=== PATIENT | female | born 1985 | race Caucasian/White ===

== ENCOUNTER 2017-03-25 17:41 | Emergency (ER) | payer BC, OTHER ==
[~2017-03-25] VITALS: Ht 165.1 cm; Wt 65.5 kg
[~2017-03-25 17:41] MED LIST: BACTDS PO; CEPH-443 PO; CLIN-73 PO; GUAI118L94 PO; IBUP-1542 PO; NAPR220C2 PO; ONDA4TAB35 PO; RTPRO NEB
[2017-03-25 17:55] VITALS: Ht 165.1 cm; Wt 65.5 kg
[2017-03-25] MEDS ORDERED: CEPH-443 PO (18:50)
[2017-03-25] MEDS ORDERED: MUPI22OI2 TOP (18:50)
[2017-03-25] MEDS ORDERED: SULF1TAB31 PO (18:50)
--- NOTE | 2017-03-25 23:12 | ERD ---
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 She states she developed small abscesses to her right axilla and a few on her upper back. She states for the last 2 years she has been on oral antibiotics and antibiotic ointments for treatment. She denies fevers or chills, no chest pain or shortness of breath, no headache or blurry vision. ROS All systems reviewed and are negative except as per history of present illness. Medications Home Meds Active Scripts Mupirocin* (Bactroban*) 2% -22 Gram Oint...g., 1 APPLIC TOP BID for 14 Days, EA Prov:NATALIE AHUMADA MD 03/25/17 Cephalexin* (Keflex*) 500 Mg Capsule, 500 MG PO QID for 10 Days, CAP Prov:NATALIE AHUMADA MD 03/25/17 Sulfamethoxazole/Trimethoprim* (Bactrim Ds* Tablet) 1 Each Tablet, 1 TAB PO BID , #20 TAB Prov:NATALIE AHUMADA MD 03/25/17 Clindamycin Hcl* (Clindamycin Hcl*) 300 Mg Capsule, 450 MG PO TID for 10 Days, CAP Prov:SIMONA DEWEY PA-C 08/29/16 Albuterol Sulfate* (Proventil* Neb) 0.083% Neb, 2.5 MG NEB Q4 Y for SHORTNESS OF BREATH, #30 EA Prov:YASMIN THORPE MD 05/02/16 Ibuprofen* (Motrin*) 600 Mg Tab, 600 MG PO Q6H Y for PAIN AND OR ELEVATED TEMP, #30 Prov:CATERINA ALFRED NP 09/01/15 Guaifenesin-Codeine Phosphate* (Guaifenesin* with Codeine Liq) 120 Ml Liquid, 5 ML PO Q4H Y for COUGH, #60 ML Prov:CATERINA ALFRED NP 08/06/15 Clindamycin Hcl* (Clindamycin Hcl*) 300 Mg Capsule, 300 MG PO Q8 for 10 Days, CAP Prov:CATERINA ALFRED NP 08/06/15 Ondansetron Hcl* (Zofran* ODT) 4 mg -ODT Tab.disper, 4 MG PO Q8 Y for NAUSEA AND /OR VOMITING, #30 TAB Prov:CATERINA ALFRED NP 08/06/15 Cephalexin* (Keflex*) 500 Mg Capsule, 500 MG PO QID for 10 Days, CAP Prov:CATERINA ALFRED NP 07/23/15 Ibuprofen* (Ibuprofen*) 600 Mg Tablet, 600 MG PO Q6H Y for PA, #30 TAB Prov:CATERINA ALFRED NP 07/23/15 Sulfamethoxazole-Trimethoprim* (Bactrim* DS) 800-160 Mg Tab, 1 TAB PO BID for 10 Days, TAB Prov:CATERINA ALFRED NP 07/23/15 Cephalexin* (Keflex*) 500 Mg Capsule, 500 MG PO QID for 7 Days, CAP Prov:JAVIER BACON PA-C 06/04/15 Sulfamethoxazole-Trimethoprim* (Bactrim* DS) 800-160 Mg Tab, 1 TAB PO BID for 7 Days, TAB Prov:JAVIER BACON PA-C 06/04/15 Reported Medications Naproxen* (Aleve*) Unknown Strength Capsule, PO BID, CAP 09/01/15 [None] No Conflict Check 01/27/11 Allergies Allergies: Coded Allergies: meperidine (Verified Allergy, Mild, 03/25/17) vancomycin (Verified Allergy, Mild, 09/01/15) marijuana (Verified Allergy, Unknown, 03/25/17) PMhx/Soc MRSA positive skin infections History of Surgery: Yes (CVP Cath Placement/Removal) Anesthesia Reaction: No Hx Neurological Disorder: No Hx Respiratory Disorders: Yes (Asthma,COPD) Hx Cardiac Disorders: Yes ([facility]I(2007)) Hx Psychiatric Problems: No Hx Miscellaneous Medical Probl: Yes (Leukemia,ChemoTx,Myalgia,R Achilles Tendon Sprain,Chronic Skin Abscesses) Hx Alcohol Use: No Hx Substance Use: No Hx Tobacco Use: Yes Smoking Status: Current every day smoker FmHx Family History: No diabetes Physical Exam Vitals Vital Signs Date Time Temp Pulse Resp B/P Pulse Ox O2 Delivery O2 Flow Rate FiO2 03/25/17 17:55 98.3 127 20 115/69 100 Physical Exam GENERAL: Well-developed, well-nourished, well-hydrated, in no apparent distress , looks nontoxic in appearance HEENT: Moist mucous membranes, pink conjunctiva, no cervical spine tenderness or step-off deformities, no goiter, no jaundice or icterus, extraocular movements intact without pain. No submandibular induration, and no pharyngeal erythema NEURO: Alert and oriented 3, cranial nerves II through XII intact bilaterally, pupils equal round reactive to light, no focal deficits or facial asymmetry, sensation intact distally Strength 5/5 in upper and lower extremities bilaterally CARDIAC: Regular rate and rhythm, no murmurs rubs or gallops LUNGS: Clear bilaterally no wheezing crackles or stridor ABDOMEN: Soft nontender, no guarding, no rigidity, no rebound, no psoas sign no obturator sign. Normoactive bowel sounds SKIN: Multiple 1-2 cm circular superficial abscesses and ulcerations consistent with folliculitis to the right axilla and upper back no active purulent drainage noted from any of these, and no obvious skin induration. No target lesions, no skin desquamation. EXTREMITIES: No clubbing cyanosis or edema, calves are bilaterally symmetrical, no Homans sign, no popliteal cord sign. Distal pulses equal and bilateral PSYCH: Normal affect without agitation or irritability Procedures/MDM Reassurance was provided to the patient and I agreed to treat her with both oral and topical antibiotics for the next 10 days. Patient feels much better at this time, and vital signs are normal, symptoms have improved. I did give strict instructions to return to the ED if symptoms continue or worsen, patient will otherwise follow-up with primary care physician. Patient understood instructions and agreed to plan. Disclaimer: Inadvertent spelling and grammatical errors are likely due to EHR/ dictation software use and do not reflect on the overall quality of patient care. Also, please note that the electronic time recorded on this note does not necessarily reflect the actual time of the patient encounter. Departure Diagnosis: Primary Impression: Soft tissue abscess Additional Impression: Acute folliculitis Condition: Good Patient Instructions: Mrsa Skin Infection, Suspected Or Confirmed NATALIE AHUMADA MD Mar 25, 2017 23:12
== END 2017-03-25 20:00 | disposition home or self-care (01) ==
LOC: FTE 17:41
DX: L02.411 Cutaneous abscess of right axilla (principal); L02.212 Cutaneous abscess of back [any part, except buttock and flank]; L73.9 Follicular disorder, unspecified; J45.909 Unspecified asthma, uncomplicated; J44.9 Chronic obstructive pulmonary disease, unspecified; F17.210 Nicotine dependence, cigarettes, uncomplicated
CPT/HCPCS: 99284

== ENCOUNTER 2017-03-29 19:21 | Emergency (ER) | END 2017-03-29 23:10 | disposition left against medical advice (07) | DX: R22.0 Localized swelling, mass and lump, head (principal); J45.909 Unspecified asthma, uncomplicated; F17.210 Nicotine dependence, cigarettes, uncomplicated; J44.9 Chronic obstructive pulmonary disease, unspecified; Z85.6 Personal history of leukemia | CPT/HCPCS: J2930; Z7502; Z7610 ==

== ENCOUNTER 2017-05-30 20:54 | Emergency (ER) | payer OTHER ==
[~2017-05-30] VITALS: Ht 157.5 cm; Wt 75.0 kg
[~2017-05-30 20:54] MED LIST changes: +MUPI22OI2 TOP; +SULF1TAB31 PO
[2017-05-30 22:15] VITALS: Ht 157.5 cm; Wt 75.0 kg
[2017-05-30] MEDS ORDERED: CARB200T43 PO (23:13)
--- NOTE | 2017-05-30 23:23 | ERD ---
ER Documentation Chief Complaint Date/Time DATE: 05/30/17 TIME: 23:16 Chief Complaint NERVE PAIN LEFT SIDE 3-4 DAYS, BLURRY VISION AND HEARING PROB HPI 32-year-old female presents here in emergency department for complaints of minor pain on the left facial area started 4 days ago, patient states that it starts in the left ear area, radiates to the upper and lower part of the facial area, only on the left side. Patient is complaining of numbness and tingling at times but denies any deformity or slurred speech, or weakness or paralysis. Patient feels like the facial area is on fire, but only on the left side.Patient did not take any medication help with symptoms. ROS All systems reviewed and are negative except as per history of present illness. Medications Home Meds Active Scripts Carbamazepine* (Carbamazepine* XR) 200 Mg Tab.er.12h, 200 MG PO Q12, #20 TAB.SA Prov:CATERINA ALFRED NP 05/30/17 Mupirocin* (Bactroban*) 2% -22 Gram Oint...g., 1 APPLIC TOP BID for 14 Days, EA Prov:NATALIE AHUMADA MD 03/25/17 Cephalexin* (Keflex*) 500 Mg Capsule, 500 MG PO QID for 10 Days, CAP Prov:NATALIE AHUMADA MD 03/25/17 Sulfamethoxazole/Trimethoprim* (Bactrim Ds* Tablet) 1 Each Tablet, 1 TAB PO BID , #20 TAB Prov:NATALIE AHUMADA MD 03/25/17 Clindamycin Hcl* (Clindamycin Hcl*) 300 Mg Capsule, 450 MG PO TID for 10 Days, CAP Prov:SIMONA DEWEY PA-C 08/29/16 Albuterol Sulfate* (Proventil* Neb) 0.083% Neb, 2.5 MG NEB Q4 Y for SHORTNESS OF BREATH, #30 EA Prov:YASMIN THORPE MD 05/02/16 Ibuprofen* (Motrin*) 600 Mg Tab, 600 MG PO Q6H Y for PAIN AND OR ELEVATED TEMP, #30 Prov:CATERINA ALFRED NP 09/01/15 Guaifenesin-Codeine Phosphate* (Guaifenesin* with Codeine Liq) 120 Ml Liquid, 5 ML PO Q4H Y for COUGH, #60 ML Prov:CATERINA ALFRED NP 08/06/15 Clindamycin Hcl* (Clindamycin Hcl*) 300 Mg Capsule, 300 MG PO Q8 for 10 Days, CAP Prov:CATERINA ALFRED NP 08/06/15 Ondansetron Hcl* (Zofran* ODT) 4 mg -ODT Tab.disper, 4 MG PO Q8 Y for NAUSEA AND /OR VOMITING, #30 TAB Prov:CATERINA ALFRED NP 08/06/15 Cephalexin* (Keflex*) 500 Mg Capsule, 500 MG PO QID for 10 Days, CAP Prov:CATERINA ALFRED NP 07/23/15 Ibuprofen* (Ibuprofen*) 600 Mg Tablet, 600 MG PO Q6H Y for PA, #30 TAB Prov:CATERINA ALFRED NP 07/23/15 Sulfamethoxazole-Trimethoprim* (Bactrim* DS) 800-160 Mg Tab, 1 TAB PO BID for 10 Days, TAB Prov:CATERINA ALFRED NP 07/23/15 Cephalexin* (Keflex*) 500 Mg Capsule, 500 MG PO QID for 7 Days, CAP Prov:JAVIER BACON PA-C 06/04/15 Sulfamethoxazole-Trimethoprim* (Bactrim* DS) 800-160 Mg Tab, 1 TAB PO BID for 7 Days, TAB Prov:JAVIER BACON PA-C 06/04/15 Reported Medications Naproxen* (Aleve*) Unknown Strength Capsule, PO BID, CAP 09/01/15 [None] No Conflict Check 01/27/11 Allergies Allergies: Coded Allergies: meperidine (Verified Allergy, Mild, 05/30/17) vancomycin (Verified Allergy, Mild, 05/30/17) marijuana (Verified Allergy, Unknown, 05/30/17) PMhx/Soc History of Surgery: Yes (CVP Cath Placement/Removal) Anesthesia Reaction: No Hx Neurological Disorder: No Hx Respiratory Disorders: Yes (Asthma,COPD) Hx Cardiac Disorders: Yes (AMI(2007)) Hx Psychiatric Problems: No Hx Miscellaneous Medical Probl: Yes (Leukemia,ChemoTx,Myalgia,R Achilles Tendon Sprain,Chronic Skin Abscesses) Hx Alcohol Use: No Hx Substance Use: No Hx Tobacco Use: Yes (6 cigs/ day) Smoking Status: Current every day smoker FmHx Family History: No coronary disease, No diabetes, No other Physical Exam Vitals Vital Signs Date Time Temp Pulse Resp B/P Pulse Ox O2 Delivery O2 Flow Rate FiO2 05/30/17 22:15 99.1 95 20 131/97 97 Physical Exam GENERAL: The patient is well developed and appropriate for usual state of health, in no apparent distress. CHEST: Clear to auscultation bilaterally. There are no rales, wheezes or rhonchi. HEART: Regular rate and rhythm. No murmurs, clicks, rubs or gallops. No S3 or S4. ABDOMEN: Soft, nontender and nondistended. Good bowel sounds. No rebound or guarding. No gross peritonitis. No gross organomegaly or masses. No Merlos sign or McBurney point tenderness. BACK: No midline or flank tenderness. EXTREMITIES: Equal pulses bilaterally. There is no peripheral clubbing, cyanosis or edema. No focal swelling or erythema. Full range of motion. Grossly neurovascularly intact. NEURO: Alert and oriented. Cranial nerves 2-12 intact. Motor strength in all 4 extremities with 5/5 strength. Sensation grossly intact. Normal speech and gait. SKIN: There is no apparent rash or petechia. The skin is warm and dry. HEMATOLOGIC AND LYMPHATIC: There is no evidence of excessive bruising or lymphedema. No gross cervical, axillary, or inguinal lymphadenopathy. Procedures/MDM Medical Decision Making: Patient symptoms are consistent with Trigeminal neurologist. There is low suspicion for neurological emergencies at this time since patients neurologic exam is normal. Patient did not have any altered level consciousness, vomiting, changes in balance or memory and did not have any head injury. Patients CT scan of the head not indicated at this time Rx: Carbamazepine Dispostion: Home. Stable Departure Diagnosis: Primary Impression: Trigeminal neuralgia of left side of face Condition: Stable Patient Instructions: Trigeminal Neuralgia CATERINA ALFRED NP May 30, 2017 23:23
== END 2017-05-30 23:41 | disposition home or self-care (01) ==
LOC: FTE 20:54
DX: G50.0 Trigeminal neuralgia (principal); J44.9 Chronic obstructive pulmonary disease, unspecified; F17.210 Nicotine dependence, cigarettes, uncomplicated; Z85.6 Personal history of leukemia
CPT/HCPCS: 99283

== ENCOUNTER 2017-06-09 08:07 | Emergency (ER) | payer OTHER ==
[~2017-06-09] VITALS: Wt 67.5 kg
[~2017-06-09 08:07] MED LIST changes: +CARB200T43 PO
--- NOTE | 2017-06-09 08:58 | ERD ---
ER Documentation Chief Complaint Date/Time DATE: 06/09/17 TIME: 08:56 Chief Complaint NECK PAIN, SEEN HERE RECENTLY FOR SAME S/S, NO INJURY HPI 32-year-old female, history of leukemia as a child, recently seen for facial pain comes in with right-sided neck pain for the past 2-3 days. She describes as the right lateral cervical region, radiating to her shoulder, described as achy, diffuse, worse in movement and better at rest. She has not had any trauma. She denies any fevers or chills. ROS All systems reviewed and are negative except as per history of present illness. Medications Home Meds Active Scripts Cyclobenzaprine Hcl* (Cyclobenzaprine Hcl*) 5 Mg Tablet, 5 MG PO Q8H Y for PAIN , #15 TAB Prov:JOANN LEE PA-C 06/09/17 Ibuprofen* (Motrin*) 600 Mg Tab, 600 MG PO Q6, #30 TAB Prov:JOANN LEE PA-C 06/09/17 Hydrocodone/Acetaminophen ([place] 5-325 Tablet) 1 Each Tablet, 1 TAB PO Q6H Y for PAIN, #7 TAB Prov:JOANN LEE PA-C 06/09/17 Carbamazepine* (Carbamazepine* XR) 200 Mg Tab.er.12h, 200 MG PO Q12, #20 TAB.SA Prov:CATERINA ALFRED NP 05/30/17 Mupirocin* (Bactroban*) 2% -22 Gram Oint...g., 1 APPLIC TOP BID for 14 Days, EA Prov:NATALIE AHUMADA MD 03/25/17 Cephalexin* (Keflex*) 500 Mg Capsule, 500 MG PO QID for 10 Days, CAP Prov:NATALIE AHUMADA MD 03/25/17 Sulfamethoxazole/Trimethoprim* (Bactrim Ds* Tablet) 1 Each Tablet, 1 TAB PO BID , #20 TAB Prov:NATALIE AHUMADA MD 03/25/17 Clindamycin Hcl* (Clindamycin Hcl*) 300 Mg Capsule, 450 MG PO TID for 10 Days, CAP Prov:SIMONA DEWEY PA-C 08/29/16 Albuterol Sulfate* (Proventil* Neb) 0.083% Neb, 2.5 MG NEB Q4 Y for SHORTNESS OF BREATH, #30 EA Prov:YASMIN THORPE MD 05/02/16 Ibuprofen* (Motrin*) 600 Mg Tab, 600 MG PO Q6H Y for PAIN AND OR ELEVATED TEMP, #30 Prov:CATERINA ALFRED NP 09/01/15 Guaifenesin-Codeine Phosphate* (Guaifenesin* with Codeine Liq) 120 Ml Liquid, 5 ML PO Q4H Y for COUGH, #60 ML Prov:CATERINA ALFRED NP 08/06/15 Clindamycin Hcl* (Clindamycin Hcl*) 300 Mg Capsule, 300 MG PO Q8 for 10 Days, CAP Prov:CATERINA ALFRED NP 08/06/15 Ondansetron Hcl* (Zofran* ODT) 4 mg -ODT Tab.disper, 4 MG PO Q8 Y for NAUSEA AND /OR VOMITING, #30 TAB Prov:CATERINA ALFRED NP 08/06/15 Cephalexin* (Keflex*) 500 Mg Capsule, 500 MG PO QID for 10 Days, CAP Prov:CATERINA ALFRED NP 07/23/15 Ibuprofen* (Ibuprofen*) 600 Mg Tablet, 600 MG PO Q6H Y for PA, #30 TAB Prov:CATERINA ALFRED NP 07/23/15 Sulfamethoxazole-Trimethoprim* (Bactrim* DS) 800-160 Mg Tab, 1 TAB PO BID for 10 Days, TAB Prov:CATERINA ALFRED NP 07/23/15 Cephalexin* (Keflex*) 500 Mg Capsule, 500 MG PO QID for 7 Days, CAP Prov:JAVIER BACON PA-C 06/04/15 Sulfamethoxazole-Trimethoprim* (Bactrim* DS) 800-160 Mg Tab, 1 TAB PO BID for 7 Days, TAB Prov:JAVIER BACON PA-C 06/04/15 Reported Medications Naproxen* (Aleve*) Unknown Strength Capsule, PO BID, CAP 09/01/15 [None] No Conflict Check 01/27/11 Allergies Allergies: Coded Allergies: meperidine (Verified Allergy, Mild, 05/30/17) vancomycin (Verified Allergy, Mild, 05/30/17) marijuana (Verified Allergy, Unknown, 05/30/17) PMhx/Soc History of Surgery: Yes (CVP Cath Placement/Removal) Anesthesia Reaction: No Hx Neurological Disorder: No Hx Respiratory Disorders: Yes (Asthma,COPD) Hx Cardiac Disorders: Yes (AMI(2007)) Hx Psychiatric Problems: No Hx Miscellaneous Medical Probl: Yes (Leukemia,ChemoTx,Myalgia,R Achilles Tendon Sprain,Chronic Skin Abscesses) Hx Alcohol Use: No Hx Substance Use: No Hx Tobacco Use: Yes (6 cigs/ day) Smoking Status: Current every day smoker Physical Exam Vitals Vital Signs Date Time Temp Pulse Resp B/P Pulse Ox O2 Delivery O2 Flow Rate FiO2 06/09/17 08:10 98.1 86 17 122/83 98 Physical Exam General: Well-developed, well-nourished. The patient appears in no acute distress. HEENT: Head is normocephalic, atraumatic. No scleral icterus. Pupils are equal , round, and reactive. Oral mucous membranes are moist. No pharyngeal erythema. Neck: Supple. Tender at the cervical lateral region, approximately C5 and C6. There is no midline tenderness or step-offs. No rashes. Lungs: Clear to auscultation. Normal air movement. Heart: Regular rate and rhythm. S1 and S2 are normal. No murmurs, gallops, or rubs. Abdomen: Soft, nontender, nondistended. Bowel sounds are normoactive. Extremities: Patient is able to AB duct the right shoulder, exacerbating pain. Radian, ulnar, median nerve intact. There is no swelling. Pulses 2+ bilaterally, capillary refill less than 2 seconds. Neurologic: Alert and oriented 3. No focal deficits. Skin: Normal turgor. No rash or lesions. Results 24 hrs Current Medications Medications (Trade) Dose Ordered Sig/Kam Route PRN Reason Start Time Stop Time Status Last Admin Dose Admin Acetaminophen/ Hydrocodone Bitart ([place] ()) 1 tab ONCE ONCE PO 06/09/17 09:00 06/09/17 09:01 DC 06/09/17 08:39 Patient: NOE OSUNA : 1985 Age: 32 Sex: F MR #: [id number] DOS: 06/09/17 0831 Ordering MD: JOANN LEE PA-C Location: [facility] Room/Bed: PROCEDURE: CT Cervical Spine without contrast. CLINICAL INDICATION: Right lateral neck pain times 2 days. TECHNIQUE: Multi detector acquisition was made through the cervical spine with coronal and sagittal reformats were obtained without contrast. The scan was reviewed in soft tissue and high frequency resolution bone algorithm windows. Images were reviewed on a high-resolution PACS workstation. The exam CTDI = 22.22 mGy and the DLP = 484.37 mGy-cm. One or the following dose reduction techniques were used: -Automated exposure control. -Adjustment of the mA and/or KV according to patient's size. -Use of iterative reconstruction technique. COMPARISON: No prior studies are available for comparison. FINDINGS: There is reversal of the normal cervical lordosis centered at C5. There is normal height of the vertebral bodies. The intervertebral disc spaces appear normal. The cervical spinal cord shows no significant enlargement, or focal masses. There is a no bone destruction or sclerosis. There is no dislocation or fracture. C2-3: A significant disk, ligamentous or osseous abnormality is not identified. There is no neuroforaminal narrowing. There is no central canal stenosis. C3-4: A significant disk, ligamentous or osseous abnormality is not identified. There is no neuroforaminal narrowing. There is no central canal stenosis. C4-5: A significant disk, ligamentous or osseous abnormality is not identified. There is no neuroforaminal narrowing. There is no central canal stenosis. C5-6: There are tiny degenerative enthesophytes in the midline. There is no disc herniation, ligamentous or osseous abnormality identified. There is no central canal stenosis or foraminal stenosis. C6-7: A significant disk, ligamentous or osseous abnormality is not identified. There is no neuroforaminal narrowing. There is no central canal stenosis. C7-T1: A significant disk, ligamentous or osseous abnormality is not identified. There is no neuroforaminal narrowing. There is no central canal stenosis. IMPRESSION: 1. Slight reversal of the normal cervical lordosis at this C5 level. This may be positional or could be secondary to muscle spasm. 2. Early degenerative enthesophyte formation at the C5-6 level. There is no franki disc herniation. No central canal stenosis or foraminal stenosis 3. No evidence of an acute fracture or subluxation. RPTAT: AACC Hung Lopez, Physician Date Time Electronically viewed and signed by Hung Lopez Physician on 06/09/2017 08: 58 JH/ CC: JOANN LEE PA-C Procedures/MDM 32-year-old female comes in with atraumatic right lateral neck pain, Shows reversal cervical lordosis at C5, also shows enthesophyte at C5 and C6. Patient at this time does not show any signs of neurologic symptoms, no evidence of meningitis, encephalitis, neck mass, transverse myelitis was considered however her examination is normal she denies any fever. CT scan copy was given to the patient, she will be given muscle relaxants, anti- inflammatories and a short course of [place] for pain control. She was asked to follow-up with her primary doctor to get a referral for physical therapy and reevaluation. Departure Diagnosis: Primary Impression: Neck pain Condition: Good JOANN LEE PA-C Jun 09, 2017 08:58
--- NOTE | 2017-06-09 08:58 | RADRPT ---
PROCEDURE: CT Cervical Spine without contrast. CLINICAL INDICATION: Right lateral neck pain times 2 days. TECHNIQUE: Multi detector acquisition was made through the cervical spine with coronal and sagitta l reformats were obtained without contrast. The scan was reviewed in soft tissue and high frequenc y resolution bone algorithm windows. Images were reviewed on a high-resolution PACS workstation. Th e exam CTDI = 22.22 mGy and the DLP = 484.37 mGy-cm. One or the following dose reduction techniques were used: -Automated exposure control. -Adjustment of the mA and/or KV according to patient's size. -Use of iterative reconstruction technique. COMPARISON: No prior studies are available for comparison. FINDINGS: There is reversal of the normal cervical lordosis centered at C5. There is normal height of the giorgi tebral bodies. The intervertebral disc spaces appear normal. The cervical spinal cord shows no signi ficant enlargement, or focal masses. There is a no bone destruction or sclerosis. There is no disloc ation or fracture. C2-3: A significant disk, ligamentous or osseous abnormality is not identified. There is no neurofo raminal narrowing. There is no central canal stenosis. C3-4: A significant disk, ligamentous or osseous abnormality is not identified. There is no neurofo raminal narrowing. There is no central canal stenosis. C4-5: A significant disk, ligamentous or osseous abnormality is not identified. There is no neurofo raminal narrowing. There is no central canal stenosis. C5-6: There are tiny degenerative enthesophytes in the midline. There is no disc herniation, ligamen tous or osseous abnormality identified. There is no central canal stenosis or foraminal stenosis. C6-7: A significant disk, ligamentous or osseous abnormality is not identified. There is no neurof oraminal narrowing. There is no central canal stenosis. C7-T1: A significant disk, ligamentous or osseous abnormality is not identified. There is no neurof oraminal narrowing. There is no central canal stenosis. IMPRESSION: 1. Slight reversal of the normal cervical lordosis at this C5 level. This may be positional or could be secondary to muscle spasm. 2. Early degenerative enthesophyte formation at the C5-6 level. There is no franki disc herniation. No central canal stenosis or foraminal stenosis 3. No evidence of an acute fracture or subluxation. RPTAT: AAC Hung Lopez, Physician Date Time Electronically viewed and signed by Hung Lopez, Physician on 06/09/2017 08:58 /
[2017-06-09] MEDS ORDERED: HYDROCODONE/APAP (10/325) TAB PO ONE (09:00)
[2017-06-09] MEDS ORDERED: CYCL5TAB PO (09:22)
[2017-06-09] MEDS ORDERED: IBUP-1542 PO (09:22)
[2017-06-09] MEDS ORDERED: HYDR-906 PO (09:22)
== END 2017-06-09 09:47 | disposition home or self-care (01) ==
LOC: FTE 08:07
DX: M54.2 Cervicalgia (principal); J44.9 Chronic obstructive pulmonary disease, unspecified; F17.210 Nicotine dependence, cigarettes, uncomplicated
CPT/HCPCS: 72125; Z7502; Z7610

== ENCOUNTER 2017-06-27 18:08 | Emergency (ER) | payer OTHER ==
[~2017-06-27] VITALS: Ht 154.9 cm; Wt 64.0 kg
[~2017-06-27 18:08] MED LIST changes: +CYCL5TAB PO; +HYDR-906 PO
[2017-06-27 18:22] VITALS: Ht 154.9 cm; Wt 64.0 kg
[2017-06-27] MEDS ORDERED: KEN1O TOP (19:44)
--- NOTE | 2017-06-27 20:21 | ERA ---
ER Documentation Chief Complaint Date/Time DATE: 06/27/17 Chief Complaint pt bib self with c/o rash to bilatteral arms x 2 days HPI The patient is a 32-year-old female, presenting to the ER because of bilateral upper extremity rash for 2 days after scratching on them she thought that she might have insect bite. She also has history of anxiety. She denies fever, chills, neck pain, chest pain, dyspnea, abdominal, vomiting. She smokes socially, denies drinking Past medical history: Anxiety, trigeminal neuralgia Past surgical history: None ROS All systems reviewed and are negative except as per history of present illness. Medications Home Meds Active Scripts Triamcinolone Acetonide* (Kenalog*) 0.1%-15GM Oint, 1 APPLIC TOP BID for 7 Days , #1 EA Prov:LES GAUTHIER MD 06/27/17 Cyclobenzaprine Hcl* (Cyclobenzaprine Hcl*) 5 Mg Tablet, 5 MG PO Q8H Y for PAIN , #15 TAB Prov:JOANN LEE PA-C 06/09/17 Ibuprofen* (Motrin*) 600 Mg Tab, 600 MG PO Q6, #30 TAB Prov:JOANN LEE PA-C 06/09/17 Hydrocodone/Acetaminophen ([place] 5-325 Tablet) 1 Each Tablet, 1 TAB PO Q6H Y for PAIN, #7 TAB Prov:JOANN LEE PA-C 06/09/17 Carbamazepine* (Carbamazepine* XR) 200 Mg Tab.er.12h, 200 MG PO Q12, #20 TAB.SA Prov:CATERINA ALFRED NP 05/30/17 Mupirocin* (Bactroban*) 2% -22 Gram Oint...g., 1 APPLIC TOP BID for 14 Days, EA Prov:NATALIE AHUMADA MD 03/25/17 Cephalexin* (Keflex*) 500 Mg Capsule, 500 MG PO QID for 10 Days, CAP Prov:NATALIE AHUMADA MD 03/25/17 Sulfamethoxazole/Trimethoprim* (Bactrim Ds* Tablet) 1 Each Tablet, 1 TAB PO BID , #20 TAB Prov:NATALIE AHUMADA MD 03/25/17 Clindamycin Hcl* (Clindamycin Hcl*) 300 Mg Capsule, 450 MG PO TID for 10 Days, CAP Prov:SIMONA DEWEY PA-C 08/29/16 Albuterol Sulfate* (Proventil* Neb) 0.083% Neb, 2.5 MG NEB Q4 Y for SHORTNESS OF BREATH, #30 EA Prov:YASMIN THORPE MD 05/02/16 Ibuprofen* (Motrin*) 600 Mg Tab, 600 MG PO Q6H Y for PAIN AND OR ELEVATED TEMP, #30 Prov:CATERINA ALFRED NP 09/01/15 Guaifenesin-Codeine Phosphate* (Guaifenesin* with Codeine Liq) 120 Ml Liquid, 5 ML PO Q4H Y for COUGH, #60 ML Prov:CATERINA ALFRED NP 08/06/15 Clindamycin Hcl* (Clindamycin Hcl*) 300 Mg Capsule, 300 MG PO Q8 for 10 Days, CAP Prov:CATERINA ALFRED NP 08/06/15 Ondansetron Hcl* (Zofran* ODT) 4 mg -ODT Tab.disper, 4 MG PO Q8 Y for NAUSEA AND /OR VOMITING, #30 TAB Prov:CATERINA ALFRED NP 08/06/15 Cephalexin* (Keflex*) 500 Mg Capsule, 500 MG PO QID for 10 Days, CAP Prov:CATERINA ALFRED NP 07/23/15 Ibuprofen* (Ibuprofen*) 600 Mg Tablet, 600 MG PO Q6H Y for PA, #30 TAB Prov:CATERINA ALFRED NP 07/23/15 Sulfamethoxazole-Trimethoprim* (Bactrim* DS) 800-160 Mg Tab, 1 TAB PO BID for 10 Days, TAB Prov:CATERINA ALFRED NP 07/23/15 Cephalexin* (Keflex*) 500 Mg Capsule, 500 MG PO QID for 7 Days, CAP Prov:JAVIER BACON PA-C 06/04/15 Sulfamethoxazole-Trimethoprim* (Bactrim* DS) 800-160 Mg Tab, 1 TAB PO BID for 7 Days, TAB Prov:JAVIER BACON PA-C 06/04/15 Reported Medications Naproxen* (Aleve*) Unknown Strength Capsule, PO BID, CAP 11/30/15 [None] No Conflict Check 01/27/11 Allergies Allergies: Coded Allergies: meperidine (Verified Allergy, Mild, 05/30/17) vancomycin (Verified Allergy, Mild, 05/30/17) marijuana (Verified Allergy, Unknown, 05/30/17) PMhx/Soc History of Surgery: Yes (CVP Cath Placement/Removal) Anesthesia Reaction: No Hx Neurological Disorder: No Hx Respiratory Disorders: Yes (Asthma,COPD) Hx Cardiac Disorders: Yes (AMI(2007)) Hx Psychiatric Problems: No Hx Miscellaneous Medical Probl: Yes (Leukemia,ChemoTx,Myalgia,R Achilles Tendon Sprain,Chronic Skin Abscesses) Hx Alcohol Use: No Hx Substance Use: No Hx Tobacco Use: Yes (6 cigs/ day) Smoking Status: Current some day smoker Physical Exam Vitals Vital Signs Date Time Temp Pulse Resp B/P Pulse Ox O2 Delivery O2 Flow Rate FiO2 06/27/17 18:22 98.3 84 16 133/87 99 Physical Exam Const: No acute distress.Very anxious Head: Atraumatic. Eyes: Normal Conjunctiva. ENT: Normal External Ears, Nose and Mouth. Neck: Full range of motion. No meningismus. Resp: Clear to auscultation bilaterally. Cardio: Regular rate and rhythm. Abd: Soft, non distended, normal bowel sounds, non tender. Skin: No petechiae or rashes. Back: No midline or flank tenderness. Ext: Minimal excoriation of bilateral upper extremity, no vesicle, no pustules Neur: Awake and alert. No focal deficit Psych: Normal Mood and Affect. Procedures/MDM MEDICAL MAKING DECISION: The patient is a 32-year-old female, presenting with bilateral upper extremity nonspecific dermatitis. He has been taking Benadryl with good response. She is stable for outpatient follow-up. The differential diagnoses considered include but are not limited to cellulitis , anxiety Departure Diagnosis: Primary Impression: Rash and other nonspecific skin eruption Condition: Good Patient Instructions: Self-Care for Skin Rashes Referrals: DOCTOR,NOT ON STAFF (PCP) Additional Instructions: Call your primary care doctor TOMORROW for an appointment during the next 2-3 days.See the doctor sooner or return here if your condition worsens before your appointment time. She was discharge with Ale The patient's blood pressure was elevated (>120/80) but appears stable without evidence of hypertension emergency or urgency. The patient was counseled about the risks of hypertension and urged to pursue outpatient monitoring and therapy within a week with their primary care physician. LES GAUTHIER MD Jun 27, 2017 20:21
== END 2017-06-27 19:55 | disposition home or self-care (01) ==
LOC: FTE 18:08
DX: R21 Rash and other nonspecific skin eruption (principal); J44.9 Chronic obstructive pulmonary disease, unspecified; F17.210 Nicotine dependence, cigarettes, uncomplicated
CPT/HCPCS: 99283

== ENCOUNTER 2017-07-04 16:36 | Emergency (ER) | payer OTHER ==
[~2017-07-04] VITALS: Ht 154.9 cm; Wt 67.0 kg
[~2017-07-04 16:36] MED LIST changes: +KEN1O TOP
[2017-07-04 16:40] VITALS: Ht 154.9 cm; Wt 67.0 kg
[2017-07-04] MEDS ORDERED: ONDANSETRON 4 MG INJ IV STA (18:08)
[2017-07-04] MEDS ORDERED: morphine 10 MG INJ IV ONE (18:30)
[2017-07-04] MEDS ORDERED: morphine 4 MG/ML VIAL IV STA (19:44)
[2017-07-04] MEDS ORDERED: KETOROLAC 30 MG INJ IV STA (21:02)
[2017-07-04] MEDS ORDERED: TRAM50TA2 PO (21:51)
--- NOTE | 2017-07-04 22:02 | ERD ---
ER Documentation Chief Complaint Date/Time DATE: 07/04/17 TIME: 21:57 Chief Complaint FACIAL NERVE PAIN, RADIATES TO THE NECK AND BACK. HPI This is a 32-year-old female presents to the ER with left-sided facial pain that has been going on for the last few weeks. Patient states she has a known medical history of trigeminal neuralgia and she is currently on carbamazepine, however it is not helping with her pain. Also prescribed [place], however she states that it makes her too sleepy and she is not able to function, go to school or take care of her son while she was on it. Patient denies any head trauma, she denies any facial, upper or lower extremity weaknesses. He does admit to a numb sensation to the left side of her face, she is hypersensitive to air hitting her face. ROS 12 point review of systems was done, all negative except per HPI. Medications Home Meds Active Scripts Tramadol HCl (Tramadol HCl) 50 Mg Tablet, 50 MG PO Q4 Y for PAIN, #20 TAB Prov:JUDI ERAZO 07/04/17 Triamcinolone Acetonide* (Kenalog*) 0.1%-15GM Oint, 1 APPLIC TOP BID for 7 Days , #1 EA Prov:LES GAUTHIER MD 06/27/17 Cyclobenzaprine Hcl* (Cyclobenzaprine Hcl*) 5 Mg Tablet, 5 MG PO Q8H Y for PAIN , #15 TAB Prov:JOANN LEE PA-C 06/09/17 Ibuprofen* (Motrin*) 600 Mg Tab, 600 MG PO Q6, #30 TAB Prov:JOANN LEE PA-C 06/09/17 Hydrocodone/Acetaminophen ([place] 5-325 Tablet) 1 Each Tablet, 1 TAB PO Q6H Y for PAIN, #7 TAB Prov:JOANN LEE PA-C 06/09/17 Carbamazepine* (Carbamazepine* XR) 200 Mg Tab.er.12h, 200 MG PO Q12, #20 TAB.SA Prov:CATERINA ALFRED NP 05/30/17 Mupirocin* (Bactroban*) 2% -22 Gram Oint...g., 1 APPLIC TOP BID for 14 Days, EA Prov:NATALIE AHUMADA MD 03/25/17 Cephalexin* (Keflex*) 500 Mg Capsule, 500 MG PO QID for 10 Days, CAP Prov:NATALIE AHUMADA MD 03/25/17 Sulfamethoxazole/Trimethoprim* (Bactrim Ds* Tablet) 1 Each Tablet, 1 TAB PO BID , #20 TAB Prov:NATALIE AHUMADA MD 03/25/17 Clindamycin Hcl* (Clindamycin Hcl*) 300 Mg Capsule, 450 MG PO TID for 10 Days, CAP Prov:SIMONA DEWEY PA-C 08/29/16 Albuterol Sulfate* (Proventil* Neb) 0.083% Neb, 2.5 MG NEB Q4 Y for SHORTNESS OF BREATH, #30 EA Prov:YASMIN THORPE MD 05/02/16 Ibuprofen* (Motrin*) 600 Mg Tab, 600 MG PO Q6H Y for PAIN AND OR ELEVATED TEMP, #30 Prov:CATERINA ALFRED NP 09/01/15 Guaifenesin-Codeine Phosphate* (Guaifenesin* with Codeine Liq) 120 Ml Liquid, 5 ML PO Q4H Y for COUGH, #60 ML Prov:CATERINA ALFRED NP 08/06/15 Clindamycin Hcl* (Clindamycin Hcl*) 300 Mg Capsule, 300 MG PO Q8 for 10 Days, CAP Prov:CATERINA ALFRED NP 08/06/15 Ondansetron Hcl* (Zofran* ODT) 4 mg -ODT Tab.disper, 4 MG PO Q8 Y for NAUSEA AND /OR VOMITING, #30 TAB Prov:CATERINA ALFRED NP 08/06/15 Cephalexin* (Keflex*) 500 Mg Capsule, 500 MG PO QID for 10 Days, CAP Prov:CATERINA ALFRED NP 07/23/15 Ibuprofen* (Ibuprofen*) 600 Mg Tablet, 600 MG PO Q6H Y for PA, #30 TAB Prov:CATERINA ALFRED NP 07/23/15 Sulfamethoxazole-Trimethoprim* (Bactrim* DS) 800-160 Mg Tab, 1 TAB PO BID for 10 Days, TAB Prov:CATERINA ALFRED NP 07/23/15 Cephalexin* (Keflex*) 500 Mg Capsule, 500 MG PO QID for 7 Days, CAP Prov:JAVIER BACON PA-C 06/04/15 Sulfamethoxazole-Trimethoprim* (Bactrim* DS) 800-160 Mg Tab, 1 TAB PO BID for 7 Days, TAB Prov:JAVIER BACON PA-C 06/04/15 Reported Medications Naproxen* (Aleve*) Unknown Strength Capsule, PO BID, CAP 09/01/15 [None] No Conflict Check 01/27/11 Allergies Allergies: Coded Allergies: meperidine (Verified Allergy, Mild, 05/30/17) vancomycin (Verified Allergy, Mild, 05/30/17) marijuana (Verified Allergy, Unknown, 05/30/17) PMhx/Soc History of Surgery: Yes (CVP Cath Placement/Removal) Anesthesia Reaction: No Hx Neurological Disorder: No Hx Respiratory Disorders: Yes (Asthma,COPD) Hx Cardiac Disorders: Yes (AMI(2006)) Hx Psychiatric Problems: No Hx Miscellaneous Medical Probl: Yes (Leukemia,ChemoTx,Myalgia,R Achilles Tendon Sprain,Chronic Skin Abscesses) Hx Alcohol Use: No Hx Substance Use: No Hx Tobacco Use: Yes (6 cigs/ day) Smoking Status: Current every day smoker Physical Exam Vitals Vital Signs Date Time Temp Pulse Resp B/P Pulse Ox O2 Delivery O2 Flow Rate FiO2 07/04/17 16:40 97.7 106 18 137/85 100 Physical Exam Differential Diagnosis includes but is not limited to; tension headache, migraine headache, cluster headache, sinus headache, nonspecific febrile headache, trigeminal neurologia, subdural hematoma, subarachnoid bleeding, meningitis, encephalitis. Patient is neurologically intact with no focal neurological deficits. Results 24 hrs Current Medications Medications (Trade) Dose Ordered Sig/Kam Route PRN Reason Start Time Stop Time Status Last Admin Dose Admin Morphine Sulfate (morphine) 6 mg ONCE ONCE IV 07/04/17 18:30 07/04/17 19:44 DC Ondansetron HCl (Zofran Inj) 4 mg ONCE STAT IV 07/04/17 18:08 07/04/17 18:10 DC 07/04/17 19:59 Morphine Sulfate (morphine) 4 mg ONCE STAT IV 07/04/17 19:44 07/04/17 19:45 DC 07/04/17 19:59 Ketorolac Tromethamine (Toradol) 30 mg ONCE STAT IV 07/04/17 21:02 07/04/17 21:03 DC 07/04/17 21:15 Procedures/MDM Differential Diagnosis includes but is not limited to; tension headache, migraine headache, cluster headache, sinus headache, nonspecific febrile headache, trigeminal neurologia, subdural hematoma, subarachnoid bleeding, meningitis, encephalitis. Patient is neurologically intact with no focal neurological deficits. Patient has a known history of trigeminal neuralgia, patient was given 4 mg of morphine and 50 mg of Toradol in the ER, she stated that her pain felt better. Patient needs to urgently follow up with a neurologist. She will be sent home with tramadol. She is needs to return to ER sooner if symptoms worsen. Patient is afebrile extremely well-appearing with no meningeal signs. She does not have history of trauma suspicion for acute intracranial bleed is low. My medical decision making was shared with the patient she understands and agrees with plan. Departure Diagnosis: Primary Impression: Trigeminal neuralgia Condition: Stable Patient Instructions: Trigeminal Neuralgia Additional Instructions: Call your primary care doctor TOMORROW for an appointment during the next 1-2 days.See the doctor sooner or return here if your condition worsens before your appointment time. JUDI ERAZO Jul 04, 2017 22:02
[2017-07-04 22:03] VITALS: BP 99/57; PULSE 82; RESP 16
== END 2017-07-04 22:05 | disposition home or self-care (01) ==
LOC: FTE 16:36
DX: G50.0 Trigeminal neuralgia (principal); J45.909 Unspecified asthma, uncomplicated; J44.9 Chronic obstructive pulmonary disease, unspecified; F17.210 Nicotine dependence, cigarettes, uncomplicated
CPT/HCPCS: 96374; 96375; J1885; J2270; J2405; Z7502

== ENCOUNTER 2017-07-14 22:34 | Emergency (ER) | payer OTHER ==
[~2017-07-14] VITALS: Ht 157.5 cm; Wt 70.0 kg
[~2017-07-14 22:34] MED LIST changes: +TRAM50TA2 PO
[2017-07-14 22:48] VITALS: Ht 157.5 cm; Wt 70.0 kg
[2017-07-15 01:06] VITALS: BP 133/59; PULSE 89; RESP 16
[2017-07-15] MEDS ORDERED: BEN50 PO (01:55)
[2017-07-15] MEDS ORDERED: DIPHENHYDRAMINE 50 MG INJ IM ONE (02:00)
[2017-07-15] MEDS ORDERED: METHYLPREDNISOLONE 125 MG INJ IM ONE (02:00)
--- NOTE | 2017-07-15 19:27 | ERD ---
ER Documentation Chief Complaint Date/Time DATE: 07/15/17 TIME: 19:23 Chief Complaint Pt reports taking tramadol at 1600, noticed rash at 2200 HPI 32-year-old female presents here to emergency department for complaints of rash all over the body and itching that started after taking tramadol today. Patient is complaining of itching, does not have any lip swelling, tongue swelling or stridor. Patient does not have any shortness of breath or wheezing. ROS All systems reviewed and are negative except as per history of present illness. Medications Home Meds Active Scripts Diphenhydramine Hcl* (Benadryl*) 50 Mg Cap, 50 MG PO Q6H Y for ITCHING/RASH, # 30 CAP Prov:CATERINA ALFRED NP 07/15/17 Tramadol HCl (Tramadol HCl) 50 Mg Tablet, 50 MG PO Q4 Y for PAIN, #20 TAB Prov:JUDI ERAZO 07/04/17 Triamcinolone Acetonide* (Kenalog*) 0.1%-15GM Oint, 1 APPLIC TOP BID for 7 Days , #1 EA Prov:LES GAUTHIER MD 06/27/17 Cyclobenzaprine Hcl* (Cyclobenzaprine Hcl*) 5 Mg Tablet, 5 MG PO Q8H Y for PAIN , #15 TAB Prov:JOANN LEE PA-C 06/09/17 Ibuprofen* (Motrin*) 600 Mg Tab, 600 MG PO Q6, #30 TAB Prov:JOANN LEE PA-C 06/09/17 Hydrocodone/Acetaminophen ([place] 5-325 Tablet) 1 Each Tablet, 1 TAB PO Q6H Y for PAIN, #7 TAB Prov:JOANN LEE PA-C 06/09/17 Carbamazepine* (Carbamazepine* XR) 200 Mg Tab.er.12h, 200 MG PO Q12, #20 TAB.SA Prov:CATERINA ALFRED NP 05/30/17 Mupirocin* (Bactroban*) 2% -22 Gram Oint...g., 1 APPLIC TOP BID for 14 Days, EA Prov:NATALIE AHUMADA MD 03/25/17 Cephalexin* (Keflex*) 500 Mg Capsule, 500 MG PO QID for 10 Days, CAP Prov:NATALIE AHUMADA MD 03/25/17 Sulfamethoxazole/Trimethoprim* (Bactrim Ds* Tablet) 1 Each Tablet, 1 TAB PO BID , #20 TAB Prov:NATALIE AHUMADA MD 03/25/17 Clindamycin Hcl* (Clindamycin Hcl*) 300 Mg Capsule, 450 MG PO TID for 10 Days, CAP Prov:SIMONA DEWEY PA-C 08/29/16 Albuterol Sulfate* (Proventil* Neb) 0.083% Neb, 2.5 MG NEB Q4 Y for SHORTNESS OF BREATH, #30 EA Prov:YASMIN THORPE MD 05/02/16 Ibuprofen* (Motrin*) 600 Mg Tab, 600 MG PO Q6H Y for PAIN AND OR ELEVATED TEMP, #30 Prov:CATERINA ALFRED NP 09/01/15 Guaifenesin-Codeine Phosphate* (Guaifenesin* with Codeine Liq) 120 Ml Liquid, 5 ML PO Q4H Y for COUGH, #60 ML Prov:CATERINA ALFRED NP 08/06/15 Clindamycin Hcl* (Clindamycin Hcl*) 300 Mg Capsule, 300 MG PO Q8 for 10 Days, CAP Prov:CATERINA ALFRED NP 08/06/15 Ondansetron Hcl* (Zofran* ODT) 4 mg -ODT Tab.disper, 4 MG PO Q8 Y for NAUSEA AND /OR VOMITING, #30 TAB Prov:CATERINA ALFRED NP 08/06/15 Cephalexin* (Keflex*) 500 Mg Capsule, 500 MG PO QID for 10 Days, CAP Prov:CATERINA ALFRED NP 07/23/15 Ibuprofen* (Ibuprofen*) 600 Mg Tablet, 600 MG PO Q6H Y for PA, #30 TAB Prov:CATERINA ALFRED NP 07/23/15 Sulfamethoxazole-Trimethoprim* (Bactrim* DS) 800-160 Mg Tab, 1 TAB PO BID for 10 Days, TAB Prov:CATERINA ALFRED NP 07/23/15 Cephalexin* (Keflex*) 500 Mg Capsule, 500 MG PO QID for 7 Days, CAP Prov:JAVIER BACON PA-C 06/04/15 Sulfamethoxazole-Trimethoprim* (Bactrim* DS) 800-160 Mg Tab, 1 TAB PO BID for 7 Days, TAB Prov:JAVIER BACONRusty LUNDBERG 06/04/15 Reported Medications Naproxen* (Aleve*) Unknown Strength Capsule, PO BID, CAP 09/01/15 [None] No Conflict Check 01/27/11 Allergies Allergies: Coded Allergies: meperidine (Verified Allergy, Mild, 05/30/17) vancomycin (Verified Allergy, Mild, 05/30/17) marijuana (Verified Allergy, Unknown, 05/30/17) tramadol (Verified Allergy, Unknown, 07/15/17) PMhx/Soc History of Surgery: Yes (CVP Cath Placement/Removal) Anesthesia Reaction: No Hx Neurological Disorder: Yes (TRIGEMINAL NEURALGIA) Hx Respiratory Disorders: Yes (Asthma,COPD) Hx Cardiac Disorders: Yes (AMI(2006)) Hx Psychiatric Problems: No Hx Miscellaneous Medical Probl: Yes (Leukemia,ChemoTx,Myalgia,R Achilles Tendon Sprain,Chronic Skin Abscesses) Hx Alcohol Use: No Hx Substance Use: No Hx Tobacco Use: Yes (6 cigs/ day) Smoking Status: Current every day smoker Physical Exam Vitals Vital Signs Date Time Temp Pulse Resp B/P Pulse Ox O2 Delivery O2 Flow Rate FiO2 07/15/17 01:06 89 16 133/59 98 Room Air 07/14/17 22:48 98.3 100 16 124/86 99 Physical Exam GENERAL: The patient is well developed and appropriate for usual state of health, in no apparent distress. CHEST: Clear to auscultation bilaterally. There are no rales, wheezes or rhonchi. HEART: Regular rate and rhythm. No murmurs, clicks, rubs or gallops. No S3 or S4. ABDOMEN: Soft, nontender and nondistended. Good bowel sounds. No rebound or guarding. No gross peritonitis. No gross organomegaly or masses. No Merlos sign or McBurney point tenderness. BACK: No midline or flank tenderness. EXTREMITIES: Equal pulses bilaterally. There is no peripheral clubbing, cyanosis or edema. No focal swelling or erythema. Full range of motion. Grossly neurovascularly intact. NEURO: Alert and oriented. Cranial nerves 2-12 intact. Motor strength in all 4 extremities with 5/5 strength. Sensation grossly intact. Normal speech and gait. SKIN: Maculopapular rash noted over the body. There is no apparent ecchymosis or petechia. The skin is warm and dry. HEMATOLOGIC AND LYMPHATIC: There is no evidence of excessive bruising or lymphedema. No gross cervical, axillary, or inguinal lymphadenopathy. Results 24 hrs Current Medications Medications (Trade) Dose Ordered Sig/Kam Route PRN Reason Start Time Stop Time Status Last Admin Dose Admin Methylprednisolone Sodium Succinate (Solu-Medrol) 125 mg ONCE ONCE IM 07/15/17 02:00 07/15/17 02:01 DC 07/15/17 02:07 Diphenhydramine HCl (Benadryl) 50 mg ONCE ONCE IM 07/15/17 02:00 07/15/17 02:01 DC 07/15/17 02:08 Benadryl and Solu-Medrol was given here in emergency department, verbalized feeling much better afterwards. Procedures/MDM Medical decision making: Symptoms consistent with allergic reaction, was advised to stop tramadol, was given Benadryl go home. No symptoms of anaphylactic shock, no symptoms of respiratory distress, no angioedema noted. Patient was advised to follow-up with primary care doctor in 2 days for reevaluation of symptoms. Patient was advised to return to emergency department for any worsening symptoms. Disposition: Home. Stable. Departure Diagnosis: Primary Impression: Hives Condition: Stable Patient Instructions: CATERINA Webb NP Jul 15, 2017 19:26
== END 2017-07-15 02:16 | disposition home or self-care (01) ==
LOC: FTE 22:34
DX: L50.9 Urticaria, unspecified (principal); J44.9 Chronic obstructive pulmonary disease, unspecified; F17.210 Nicotine dependence, cigarettes, uncomplicated
CPT/HCPCS: 96372; J1200; J2930; Z7502

== ENCOUNTER → 2017-08-17 | Emergency (ER) | payer OTHER ==
[~2017-08-17] VITALS: Ht 157.5 cm; Wt 70.0 kg
[~2017-08-17] MED LIST changes: +ACET500C5 PO; +ALBU2.5V3 NEB; +ALBU8.5H3 INH; +BEN50 PO; +DIPHENHYDRAMINE 25 MG CAP PO ONE
[2017-08-17 19:17] VITALS: Ht 157.5 cm; Wt 70.0 kg
--- NOTE | 2017-08-17 22:09 | RADRPT ---
PROCEDURE: XR Chest. CLINICAL INDICATION: chest pain TECHNIQUE: PA and lateral views of the chest were obtained COMPARISON: 05/02/16 FINDINGS: The heart and mediastinum are within normal limits. The lungs are clear. There is no pleural effusion or pneumothorax. The bones and soft tissues are unremarkable. RPTAT: AA IMPRESSION: No acute disease. .Mark Machuca MD, MD Date Time Electronically viewed and signed by .Mark Machuca MD, on 08/17/2017 22:08 .S/
--- NOTE | 2017-08-17 22:30 | ERD ---
ER Documentation Chief Complaint Chief Complaint Left side rib pain x 1 week HPI Patient presents with a chief complaint of left-sided rib pain 1 week. Patient has had a cough 1 month. States that her ribs hurt more when she coughs. Denies fever, chills, difficulty breathing, chest pain, cardiac history. Denies any other medical conditions. No recent travel. Vaccination status up-to-date. Patient is also complaining of abscess that she is afraid might be infected again. Denies current drainage, increasing pain, or other complications. No numbness or tingling or loss of range of motion. Patient has no other complaints and describes no other associated manifestations. Nursing notes have been reviewed and are consistent with history given. ROS All systems reviewed and are negative except as per history of present illness. Medications Home Meds Active Scripts Cephalexin* (Keflex*) 500 Mg Capsule, 500 MG PO QID for 5 Days, CAP Prov:LES WIGGINS PA-C 08/17/17 Sulfamethoxazole/Trimethoprim* (Bactrim Ds* Tablet) 1 Each Tablet, 1 TAB PO BID for 7 Days, TAB Prov:LES WIGGINS PA-C 08/17/17 Diphenhydramine Hcl* (Benadryl*) 50 Mg Cap, 50 MG PO Q6H Y for ITCHING/RASH, # 30 CAP Prov:CATERINA ALRFED NP 07/15/17 Tramadol HCl (Tramadol HCl) 50 Mg Tablet, 50 MG PO Q4 Y for PAIN, #20 TAB Prov:JUDI ERAZO 07/04/17 Triamcinolone Acetonide* (Kenalog*) 0.1%-15GM Oint, 1 APPLIC TOP BID for 7 Days , #1 EA Prov:LES GAUTHIER MD 06/27/17 Cyclobenzaprine Hcl* (Cyclobenzaprine Hcl*) 5 Mg Tablet, 5 MG PO Q8H Y for PAIN , #15 TAB Prov:JOANN LEE PA-C 06/09/17 Ibuprofen* (Motrin*) 600 Mg Tab, 600 MG PO Q6, #30 TAB Prov:JOANN LEE PA-C 06/09/17 Hydrocodone/Acetaminophen ([place] 5-325 Tablet) 1 Each Tablet, 1 TAB PO Q6H Y for PAIN, #7 TAB Prov:JOANN LEE PA-C 06/09/17 Carbamazepine* (Carbamazepine* XR) 200 Mg Tab.er.12h, 200 MG PO Q12, #20 TAB.SA Prov:CATERINA ALFRED NP 05/30/17 Mupirocin* (Bactroban*) 2% -22 Gram Oint...g., 1 APPLIC TOP BID for 14 Days, EA Prov:NATALIE AHUMADA MD 03/25/17 Cephalexin* (Keflex*) 500 Mg Capsule, 500 MG PO QID for 10 Days, CAP Prov:NATALIE AHUMADA MD 03/25/17 Sulfamethoxazole/Trimethoprim* (Bactrim Ds* Tablet) 1 Each Tablet, 1 TAB PO BID , #20 TAB Prov:NATALIE AHUMADA MD 03/25/17 Clindamycin Hcl* (Clindamycin Hcl*) 300 Mg Capsule, 450 MG PO TID for 10 Days, CAP Prov:SIMONA DEWEY PA-C 08/29/16 Albuterol Sulfate* (Proventil* Neb) 0.083% Neb, 2.5 MG NEB Q4 Y for SHORTNESS OF BREATH, #30 EA Prov:YASMIN THORPE MD 05/02/16 Ibuprofen* (Motrin*) 600 Mg Tab, 600 MG PO Q6H Y for PAIN AND OR ELEVATED TEMP, #30 Prov:CATERINA ALFRED NP 09/01/15 Guaifenesin-Codeine Phosphate* (Guaifenesin* with Codeine Liq) 120 Ml Liquid, 5 ML PO Q4H Y for COUGH, #60 ML Prov:CATERINA ALFRED NP 08/06/15 Clindamycin Hcl* (Clindamycin Hcl*) 300 Mg Capsule, 300 MG PO Q8 for 10 Days, CAP Prov:CATERINA ALFRED NP 08/06/15 Ondansetron Hcl* (Zofran* ODT) 4 mg -ODT Tab.disper, 4 MG PO Q8 Y for NAUSEA AND /OR VOMITING, #30 TAB Prov:CATERINA ALFRED NP 08/06/15 Cephalexin* (Keflex*) 500 Mg Capsule, 500 MG PO QID for 10 Days, CAP Prov:CATERINA ALFRED NP 07/23/15 Ibuprofen* (Ibuprofen*) 600 Mg Tablet, 600 MG PO Q6H Y for PA, #30 TAB Prov:CATERINA ALFRED NP 07/23/15 Sulfamethoxazole-Trimethoprim* (Bactrim* DS) 800-160 Mg Tab, 1 TAB PO BID for 10 Days, TAB Prov:CATERINA ALFRED NP 07/23/15 Cephalexin* (Keflex*) 500 Mg Capsule, 500 MG PO QID for 7 Days, CAP Prov:JAVIER BACON PA-C 06/04/15 Sulfamethoxazole-Trimethoprim* (Bactrim* DS) 800-160 Mg Tab, 1 TAB PO BID for 7 Days, TAB Prov:JAVIER BACON PA-C 06/04/15 Reported Medications Naproxen* (Aleve*) Unknown Strength Capsule, PO BID, CAP 09/01/15 [None] No Conflict Check 01/27/11 Allergies Allergies: Coded Allergies: meperidine (Verified Allergy, Mild, 05/30/17) vancomycin (Verified Allergy, Mild, 05/30/17) marijuana (Verified Allergy, Unknown, 05/30/17) tramadol (Verified Allergy, Unknown, 07/15/17) PMhx/Soc History of Surgery: Yes (CVP Cath Placement/Removal) Anesthesia Reaction: No Hx Neurological Disorder: Yes (TRIGEMINAL NEURALGIA) Hx Respiratory Disorders: Yes (Asthma,COPD) Hx Cardiac Disorders: Yes (AMI(2006)) Hx Psychiatric Problems: No Hx Miscellaneous Medical Probl: Yes (Leukemia,ChemoTx,Myalgia,R Achilles Tendon Sprain,Chronic Skin Abscesses) Hx Alcohol Use: No Hx Substance Use: No Hx Tobacco Use: Yes (6 cigs/ day) Smoking Status: Current every day smoker Physical Exam Vitals Vital Signs Date Time Temp Pulse Resp B/P Pulse Ox O2 Delivery O2 Flow Rate FiO2 08/17/17 19:17 98.4 82 20 112/78 99 Physical Exam Const: Well-appearing 32-year-old female no acute distress Head: Atraumatic Eyes: Normal Conjunctiva ENT: Normal External Ears, Nose and Mouth. Neck: Full range of motion..~ No meningismus. Resp: Clear to auscultation bilaterally. Mild tenderness palpation of the lateral left wall ribs 5 through 7 at the mid axillary line Cardio: Regular rate and rhythm, no murmurs Abd: Soft, non tender, non distended. Normal bowel sounds Skin: Well-healing abscess on the right lower extremity. No streaking, induration, discharge noted. No warmth. Back: No midline or flank tenderness Ext: No cyanosis, or edema. Full range of motion. Neurovascularly intact. Cap refill less than 2 seconds. Neur: Awake and alert Psych: Normal Mood and Affect Results 24 hrs Current Medications Medications (Trade) Dose Ordered Sig/Kam Route PRN Reason Start Time Stop Time Status Last Admin Dose Admin Diphenhydramine HCl (Benadryl) 25 mg ONCE ONCE PO 08/17/17 22:00 08/17/17 22:01 DC 08/17/17 22:08 Procedures/MDM Otherwise healthy 32-year-old female presenting with a chief complaint of rib pain patient had cough 1 month and states that the pain is worse when she coughs. X-rays obtained of the chest revealed the following: Unremarkable. At this time I will suspicion for ACS, pulmonary embolism, bony pathology, neurovascular compromise, serious bacterial infection. Low suspicion for spreading cellulitis. Patient is concerned about recurring infection and once antibiotics. Keflex and Bactrim have been prescribed. Have recommended close follow-up with PCP for further evaluation and possible referral to a specialist. Patient is stable and appropriate for discharge. I have spoke with the patient regarding their condition and future management. They have verbally responded that they understand their status and treatment plan. The patients vitals are stable, and their current condition is appropriate for discharge. The patient will be given discharge instructions with return precautions. Departure Diagnosis: Primary Impression: Rib pain Additional Impression: Soft tissue abscess Condition: Stable Patient Instructions: [place] Skin Infection, Suspected Or Confirmed Referrals: (Family) Additional Instructions: Follow up with your PCP within the next 1-3 days for a more thorough evaluation and a possible referral to a specialist. Return the the emergency department immediately if symptoms worsen or change. If you have any questions regarding medications, ask your pharmacist or us before you leave. If any adverse reactions occur while taking your medications, discontinue the treatment and return to the emergency department immediately. Take your medications as directed, and complete the entire course of treatment. LES WIGGINS PA-C Aug 17, 2017 22:30
== END | disposition home or self-care (01) ==
LOC: FTE 19:09
DX: R07.81 Pleurodynia (principal); L02.415 Cutaneous abscess of right lower limb; J45.909 Unspecified asthma, uncomplicated; J44.9 Chronic obstructive pulmonary disease, unspecified; F17.210 Nicotine dependence, cigarettes, uncomplicated
CPT/HCPCS: 71020; Z7502; Z7610

== ENCOUNTER 2017-08-20 03:01 | Emergency (ER) | payer OTHER ==
[~2017-08-20] VITALS: Ht 154.9 cm; Wt 66.0 kg
[~2017-08-20 03:01] MED LIST changes: -ACET500C5 PO; -ALBU2.5V3 NEB; -ALBU8.5H3 INH; -DIPHENHYDRAMINE 25 MG CAP PO ONE
[2017-08-20 03:06] VITALS: Ht 154.9 cm; Wt 66.0 kg
[2017-08-20] MEDS ORDERED: ACETAMINOPHEN 500 MG TAB PO STA (03:59)
--- NOTE | 2017-08-20 03:59 | ERD ---
ER Documentation Chief Complaint Chief Complaint felt pop in left chest w/ cough, now sharp pain lt CW, worse w/ breathing HPI 32-year-old female who was brought in by ambulance here in the emergency department for left-sided chest pain. Stated that she felt a pop in her left chest when she coughs. Complains of left-sided chest pain that is nonradiating and is reproducing on movement. Last menstrual period: 3 weeks ago. A0. Denies headache, dizziness, blurry vision, neck pain, throat pain, difficulty swallowing, shoulder pain, difficulty breathing, shortness of breath when lying flat, difficulty breathing when lying flat, abdominal pain, nausea, vomiting, constipation, diarrhea, urinary symptoms, or possibility of being , loss of bowel bladder control, change in bowel bladder habits, numbness or tingling sensation, difficulty walking, trauma, injury, falls, fever , chills, recent long travel, recent exposure to any illness. Allergies to marijuana, meperidine, tramadol, vancomycin. Past medical history of trigeminal neuralgia, acute lymphocytic leukemia. Surgical history: Unknown. Medication: Unable to obtain at this time. Social: Not working at this time. Smokes cigarettes. Denies use of alcoholic beverages, use of illegal drugs. ROS All systems reviewed and are negative except as per history of present illness. Medications Home Meds Active Scripts Albuterol Sulfate* (Albuterol Sulfate* Neb) 0.083%-3 Ml Neb, 2.5 MG NEB Q4 Y for SHORTNESS OF BREATH, #30 EA Prov:BASILIOTESSJASMYNEJORGE F 08/20/17 Albuterol Sulfate* (Proair HFA*) 8.5 Gm Hfa.aer.ad, 2 PUFF INH Q4, #1 INHALER Prov:BASILIOTESSJASMYNEJORGE F 08/20/17 Acetaminophen* (Tylophen*) 500 Mg Capsule, 1 CAP PO Q6H Y for PAIN AND OR ELEVATED TEMP, #20 CAP Prov:BASILIOTESSJASMYNEJORGE F 08/20/17 Cephalexin* (Keflex*) 500 Mg Capsule, 500 MG PO QID for 5 Days, CAP Prov:LES WIGGINS PA-C 08/17/17 Sulfamethoxazole/Trimethoprim* (Bactrim Ds* Tablet) 1 Each Tablet, 1 TAB PO BID for 7 Days, TAB Prov:LES WIGGINS PA-C 08/17/17 Diphenhydramine Hcl* (Benadryl*) 50 Mg Cap, 50 MG PO Q6H Y for ITCHING/RASH, # 30 CAP Prov:CATERINA ALFRED NP 07/15/17 Tramadol HCl (Tramadol HCl) 50 Mg Tablet, 50 MG PO Q4 Y for PAIN, #20 TAB Prov:JUDI ERAZO 07/04/17 Triamcinolone Acetonide* (Kenalog*) 0.1%-15GM Oint, 1 APPLIC TOP BID for 7 Days , #1 EA Prov:LES GAUTHIER MD 06/27/17 Cyclobenzaprine Hcl* (Cyclobenzaprine Hcl*) 5 Mg Tablet, 5 MG PO Q8H Y for PAIN , #15 TAB Prov:JOANN LEE PA-C 06/09/17 Ibuprofen* (Motrin*) 600 Mg Tab, 600 MG PO Q6, #30 TAB Prov:JOANN LEE PA-C 06/09/17 Hydrocodone/Acetaminophen ([place] 5-325 Tablet) 1 Each Tablet, 1 TAB PO Q6H Y for PAIN, #7 TAB Prov:JOANN LEE PA-C 06/09/17 Carbamazepine* (Carbamazepine* XR) 200 Mg Tab.er.12h, 200 MG PO Q12, #20 TAB.SA Prov:CATERINA ALFRED NP 05/30/17 Mupirocin* (Bactroban*) 2% -22 Gram Oint...g., 1 APPLIC TOP BID for 14 Days, EA Prov:NATALIE AHUMADA MD 03/25/17 Cephalexin* (Keflex*) 500 Mg Capsule, 500 MG PO QID for 10 Days, CAP Prov:NATALIE AHUMADA MD 03/25/17 Sulfamethoxazole/Trimethoprim* (Bactrim Ds* Tablet) 1 Each Tablet, 1 TAB PO BID , #20 TAB Prov:NATALIE AHUMADA MD 03/25/17 Clindamycin Hcl* (Clindamycin Hcl*) 300 Mg Capsule, 450 MG PO TID for 10 Days, CAP Prov:SIMONA DEWEY PA-C 08/29/16 Albuterol Sulfate* (Proventil* Neb) 0.083% Neb, 2.5 MG NEB Q4 Y for SHORTNESS OF BREATH, #30 EA Prov:YASMIN THORPE MD 05/02/16 Ibuprofen* (Motrin*) 600 Mg Tab, 600 MG PO Q6H Y for PAIN AND OR ELEVATED TEMP, #30 Prov:CATERINA ALFRED NP 09/01/15 Guaifenesin-Codeine Phosphate* (Guaifenesin* with Codeine Liq) 120 Ml Liquid, 5 ML PO Q4H Y for COUGH, #60 ML Prov:CATERINA ALFRED NP 08/06/15 Clindamycin Hcl* (Clindamycin Hcl*) 300 Mg Capsule, 300 MG PO Q8 for 10 Days, CAP Prov:CATERINA ALFRED NP 08/06/15 Ondansetron Hcl* (Zofran* ODT) 4 mg -ODT Tab.disper, 4 MG PO Q8 Y for NAUSEA AND /OR VOMITING, #30 TAB Prov:CATERINA ALFRED NP 08/06/15 Cephalexin* (Keflex*) 500 Mg Capsule, 500 MG PO QID for 10 Days, CAP Prov:CATERINA ALFRED NP 07/23/15 Ibuprofen* (Ibuprofen*) 600 Mg Tablet, 600 MG PO Q6H Y for PA, #30 TAB Prov:CATERINA ALFRED NP 07/23/15 Sulfamethoxazole-Trimethoprim* (Bactrim* DS) 800-160 Mg Tab, 1 TAB PO BID for 10 Days, TAB Prov:CATERINA ALFRED NP 07/23/15 Cephalexin* (Keflex*) 500 Mg Capsule, 500 MG PO QID for 7 Days, CAP Prov:JAVIER BACON PA-C 06/04/15 Sulfamethoxazole-Trimethoprim* (Bactrim* DS) 800-160 Mg Tab, 1 TAB PO BID for 7 Days, TAB Prov:JAVIER BACON PA-C 06/04/15 Reported Medications Naproxen* (Aleve*) Unknown Strength Capsule, PO BID, CAP 09/01/15 [None] No Conflict Check 01/27/11 Allergies Allergies: Coded Allergies: meperidine (Verified Allergy, Mild, 05/30/17) vancomycin (Verified Allergy, Mild, 05/30/17) marijuana (Verified Allergy, Unknown, 05/30/17) tramadol (Verified Allergy, Unknown, 07/15/17) PMhx/Soc History of Surgery: Yes (CVP Cath Placement/Removal) Anesthesia Reaction: No Hx Neurological Disorder: Yes (TRIGEMINAL NEURALGIA) Hx Respiratory Disorders: Yes (Asthma,COPD) Hx Cardiac Disorders: Yes (AMI(2006)) Hx Psychiatric Problems: No Hx Miscellaneous Medical Probl: Yes (Leukemia,ChemoTx,Myalgia,R Achilles Tendon Sprain,Chronic Skin Abscesses) Hx Alcohol Use: No Hx Substance Use: No Hx Tobacco Use: Yes Smoking Status: Current every day smoker Physical Exam Vitals Vital Signs Date Time Temp Pulse Resp B/P Pulse Ox O2 Delivery O2 Flow Rate FiO2 08/20/17 04:35 108 19 103/58 98 Room Air 08/20/17 03:06 98.7 99 20 100/76 96 Physical Exam Const: [] Head: Atraumatic Eyes: Normal Conjunctiva ENT: Normal External Ears, Nose and Mouth. Neck: Full range of motion..~ No meningismus. Resp: Clear to auscultation bilaterally. Symmetrical chest. Chest is no signs of trauma. No crepitus. No vesicular lesions. Cardio: Regular rate and rhythm, no murmurs Abd: Soft, non tender, non distended. Normal bowel sounds Skin: No petechiae or rashes Back: No midline or flank tenderness Ext: No cyanosis, or edema Neur: Awake and alert Psych: Normal Mood and Affect Results 24 hrs Current Medications Medications (Trade) Dose Ordered Sig/Kam Route PRN Reason Start Time Stop Time Status Last Admin Dose Admin Acetaminophen (Tylenol Tab) 500 mg ONCE STAT PO 08/20/17 03:59 08/20/17 04:01 DC 08/20/17 04:18 Procedures/MDM 32-year-old female who was brought in by ambulance here in the emergency department for left-sided chest pain. Stated that she felt a pop in her left chest when she coughs. Complains of left-sided chest pain that is nonradiating and is reproducing on movement. Last menstrual period: 3 weeks ago. A0. Denies headache, dizziness, blurry vision, neck pain, throat pain, difficulty swallowing, shoulder pain, difficulty breathing, shortness of breath when lying flat, difficulty breathing when lying flat, abdominal pain, nausea, vomiting, constipation, diarrhea, urinary symptoms, or possibility of being , loss of bowel bladder control, change in bowel bladder habits, numbness or tingling sensation, difficulty walking, trauma, injury, falls, fever , chills, recent long travel, recent exposure to any illness. Allergies to marijuana, meperidine, tramadol, vancomycin. Past medical history of trigeminal neuralgia, acute lymphocytic leukemia. Surgical history: Unknown. Medication: Unable to obtain at this time. Social: Not working at this time. Smokes cigarettes. Denies use of alcoholic beverages, use of illegal drugs. Physical exam: Unremarkable. Disease process was explained to the patient. She verbalized understanding and agreed with the diagnostic test, treatment, plan of care. EKG: Normal sinus rhythm with a ventricular rate of 97 bpm. No STEMI. No evidence of acute myocardial infarction. No evidence of ischemia. Read by supervising emergency room physician, Dr. Jeison Cowan. Treatment: [place]. Reevaluation: Denies headache, dizziness, blurred vision, neck pain, shoulder pain, chest pain, back pain, abdominal pain. No episode of emesis here in the emergency department. There is no right upper/right lower/epigastric/left upper /left lower abdominal tenderness and light and palpation. Negative on Rovsing' s sign. Negative [place] sign. Negative psoas sign. CVA tenderness. No peritoneal signs. Lung sounds are clear to auscultation. No neurological deficit no neurovascular deficits. Differential diagnosis: Acute myocardial infarction versus acute coronary syndrome versus pneumonia versus chest wall pain versus cough secondary to versus pleuritic chest pain versus endocarditis versus musculoskeletal spasms versus chronic pain Final diagnosis: Chest wall pain Prescription: Albuterol nebulization solution. Follow-up with PCP in the next 24-48 hours. Come back in the emergency department for any new symptoms or any worsening of symptoms. All questions and concerns are answered. Patient verbalized understanding and agreed with the plan of care. Hemodynamically stable on discharge. Departure Diagnosis: Primary Impression: Chest wall pain Condition: Stable Additional Instructions: Follow-up with PCP in the next 24-48 hours. Come back in the emergency department for any new symptoms or any worsening of symptoms. All questions and concerns are answered. Patient verbalized understanding and agreed with the plan of care. JEANETTE CRAFT Aug 20, 2017 03:59
[2017-08-20] MEDS ORDERED: ACET500C5 PO (04:00)
[2017-08-20] MEDS ORDERED: ALBU8.5H3 INH (04:01)
[2017-08-20] MEDS ORDERED: ALBU2.5V3 NEB (04:25)
[2017-08-20 04:35] VITALS: BP 103/58; PULSE 108; RESP 19
== END 2017-08-20 04:35 | disposition home or self-care (01) ==
LOC: FTE 03:01
DX: R07.89 Other chest pain (principal); F17.210 Nicotine dependence, cigarettes, uncomplicated; J44.9 Chronic obstructive pulmonary disease, unspecified; J45.909 Unspecified asthma, uncomplicated
CPT/HCPCS: 93005; Z7502; Z7610

== ENCOUNTER 2017-09-15 11:42 | Emergency (ER) | payer OTHER ==
[~2017-09-15] VITALS: Ht 157.5 cm; Wt 66.1 kg
[~2017-09-15 11:42] MED LIST changes: +ACET500C5 PO; +ALBU2.5V3 NEB; +ALBU8.5H3 INH
[2017-09-15 11:48] VITALS: Ht 157.5 cm; Wt 66.1 kg
[2017-09-15] MEDS ORDERED: KETOROLAC 30 MG INJ IM STA (12:53)
[2017-09-15] MEDS ORDERED: HYDROCODONE/APAP (5/325) TAB PO ONE (13:00)
--- NOTE | 2017-09-15 13:31 | ERD ---
ER Documentation Chief Complaint Chief Complaint trigeminal neurolgia pain takes tegretol HPI 32-year-old female who states that she has a history of trigeminal neuralgia currently taking carbamazepine states that she has had severe headache on bitemporal regions for 2 days. Patient usually describes her pain on the left temporal side as well as the face but is diffuse on bilateral sides, described as sharp, moderate. She denies any blurry vision, nausea, vomiting, chest pain or shortness of breath. ROS All systems reviewed and are negative except as per history of present illness. Medications Home Meds Active Scripts Cetirizine Hcl* (Zyrtec*) 10 Mg Capsule, 10 MG PO DAILY, #30 TAB.CHEW Prov:JOANN LEE PA-C 09/15/17 Fluticasone Propionate (Flonase Allergy Relief) 9.9 Ml [place].susp, 1 SPRAY NASAL BID, #1 BOTTLE TO EACH NOSTRIL Prov:JOANN LEE PA-C 09/15/17 Gabapentin* (Gabapentin*) 300 Mg Capsule, 300 MG PO BID, #60 CAP Prov:JOANN LEE PA-C 09/15/17 Acetamin/Butalbital/Caffeine* (Fioricet*) [id number] Tab, 1 TAB PO Q6H Y for PAIN, #15 TAB Prov:JOANN LEE PA-C 09/15/17 Albuterol Sulfate* (Albuterol Sulfate* Neb) 0.083%-3 Ml Neb, 2.5 MG NEB Q4 Y for SHORTNESS OF BREATH, #30 EA Prov:PASILATOMERJASMYNEAR F 08/20/17 Albuterol Sulfate* (Proair HFA*) 8.5 Gm Hfa.aer.ad, 2 PUFF INH Q4, #1 INHALER Prov:PASILAJASMYNE JEFFAR F 08/20/17 Acetaminophen* (Tylophen*) 500 Mg Capsule, 1 CAP PO Q6H Y for PAIN AND OR ELEVATED TEMP, #20 CAP Prov:PASILABAN,JASMYNEAR F 08/20/17 Cephalexin* (Keflex*) 500 Mg Capsule, 500 MG PO QID for 5 Days, CAP Prov:LES WIGGINS PA-C 08/17/17 Sulfamethoxazole/Trimethoprim* (Bactrim Ds* Tablet) 1 Each Tablet, 1 TAB PO BID for 7 Days, TAB Prov:LES WIGGINS PA-C 08/17/17 Diphenhydramine Hcl* (Benadryl*) 50 Mg Cap, 50 MG PO Q6H Y for ITCHING/RASH, # 30 CAP Prov:CATERINA ALFRED NP 07/15/17 Tramadol HCl (Tramadol HCl) 50 Mg Tablet, 50 MG PO Q4 Y for PAIN, #20 TAB Prov:JUDI ERAZO 07/04/17 Triamcinolone Acetonide* (Kenalog*) 0.1%-15GM Oint, 1 APPLIC TOP BID for 7 Days , #1 EA Prov:LES GAUTHIER MD 06/27/17 Cyclobenzaprine Hcl* (Cyclobenzaprine Hcl*) 5 Mg Tablet, 5 MG PO Q8H Y for PAIN , #15 TAB Prov:JOANN LEE PA-C 06/09/17 Ibuprofen* (Motrin*) 600 Mg Tab, 600 MG PO Q6, #30 TAB Prov:JOANN LEE PA-C 06/09/17 Hydrocodone/Acetaminophen ([place] 5-325 Tablet) 1 Each Tablet, 1 TAB PO Q6H Y for PAIN, #7 TAB Prov:JOANN LEE PA-C 06/09/17 Carbamazepine* (Carbamazepine* XR) 200 Mg Tab.er.12h, 200 MG PO Q12, #20 TAB.SA Prov:CATERINA ALFRED NP 05/30/17 Mupirocin* (Bactroban*) 2% -22 Gram Oint...g., 1 APPLIC TOP BID for 14 Days, EA Prov:NATALIE AHUMADA MD 03/25/17 Cephalexin* (Keflex*) 500 Mg Capsule, 500 MG PO QID for 10 Days, CAP Prov:NATALIE AHUMADA MD 03/25/17 Sulfamethoxazole/Trimethoprim* (Bactrim Ds* Tablet) 1 Each Tablet, 1 TAB PO BID , #20 TAB Prov:NATALIE AHUMADA MD 03/25/17 Clindamycin Hcl* (Clindamycin Hcl*) 300 Mg Capsule, 450 MG PO TID for 10 Days, CAP Prov:SIMONA DEWEYC 08/29/16 Albuterol Sulfate* (Proventil* Neb) 0.083% Neb, 2.5 MG NEB Q4 Y for SHORTNESS OF BREATH, #30 EA Prov:YASMIN THORPE MD 05/02/16 Ibuprofen* (Motrin*) 600 Mg Tab, 600 MG PO Q6H Y for PAIN AND OR ELEVATED TEMP, #30 Prov:CATERINA ALFRED NP 09/01/15 Guaifenesin-Codeine Phosphate* (Guaifenesin* with Codeine Liq) 120 Ml Liquid, 5 ML PO Q4H Y for COUGH, #60 ML Prov:CATERINA ALFRED NP 08/06/15 Clindamycin Hcl* (Clindamycin Hcl*) 300 Mg Capsule, 300 MG PO Q8 for 10 Days, CAP Prov:CATERINA ALFRED NP 08/06/15 Ondansetron Hcl* (Zofran* ODT) 4 mg -ODT Tab.disper, 4 MG PO Q8 Y for NAUSEA AND /OR VOMITING, #30 TAB Prov:CATERINA ALFRED NP 08/06/15 Cephalexin* (Keflex*) 500 Mg Capsule, 500 MG PO QID for 10 Days, CAP Prov:CATERINA ALFRED NP 07/23/15 Ibuprofen* (Ibuprofen*) 600 Mg Tablet, 600 MG PO Q6H Y for PA, #30 TAB Prov:CATERINA ALFRED NP 07/23/15 Sulfamethoxazole-Trimethoprim* (Bactrim* DS) 800-160 Mg Tab, 1 TAB PO BID for 10 Days, TAB Prov:CATERINA ALFRED NP 07/23/15 Cephalexin* (Keflex*) 500 Mg Capsule, 500 MG PO QID for 7 Days, CAP Prov:JAVIER BACON PA-C 06/04/15 Sulfamethoxazole-Trimethoprim* (Bactrim* DS) 800-160 Mg Tab, 1 TAB PO BID for 7 Days, TAB Prov:JAVIER BACON PA-C 06/04/15 Reported Medications Naproxen* (Aleve*) Unknown Strength Capsule, PO BID, CAP 09/01/15 [None] No Conflict Check 01/27/11 Allergies Allergies: Coded Allergies: meperidine (Verified Allergy, Mild, 05/30/17) vancomycin (Verified Allergy, Mild, 05/30/17) marijuana (Verified Allergy, Unknown, 05/30/17) tramadol (Verified Allergy, Unknown, 07/15/17) PMhx/Soc History of Surgery: Yes (CVP Cath Placement/Removal) Anesthesia Reaction: No Hx Neurological Disorder: Yes (TRIGEMINAL NEURALGIA) Hx Respiratory Disorders: Yes (Asthma,COPD) Hx Cardiac Disorders: Yes (AMI(2007)) Hx Psychiatric Problems: No Hx Miscellaneous Medical Probl: Yes (Leukemia,ChemoTx,Myalgia,R Achilles Tendon Sprain,Chronic Skin Abscesses) Hx Alcohol Use: No Hx Substance Use: No Hx Tobacco Use: Yes Smoking Status: Current every day smoker Physical Exam Vitals Vital Signs Date Time Temp Pulse Resp B/P Pulse Ox O2 Delivery O2 Flow Rate FiO2 09/15/17 11:48 98.0 113 18 115/55 97 Physical Exam General: Well-developed, well-nourished. The patient appears in no acute distress. HEENT: Head is normocephalic, atraumatic. No scleral icterus. Neck: Supple. Nontender. Lungs: Clear to auscultation. Normal air movement. Heart: Regular rate and rhythm. S1 and S2 are normal. No murmurs, gallops, or rubs. Abdomen: Soft, nontender, nondistended. Bowel sounds are normoactive. Extremities: No clubbing or cyanosis. Normal pulses. Moving extremities x 4. No weakness. Neuro: M/S: Alert and oriented Face: EOMI, CN II-XII grossly intact Motor: Normal strength throughout Sensation: Normal sensation throughout Speech: Normal Cerebel: Normal coordination Normal gait Normal finger to nose DTR: 2+ and symmetric upper/lower extremities Skin: Normal turgor. No rash or lesions. Results 24 hrs Current Medications Medications (Trade) Dose Ordered Sig/Kam Route PRN Reason Start Time Stop Time Status Last Admin Dose Admin Ketorolac Tromethamine (Toradol) 30 mg ONCE STAT IM 09/15/17 12:53 09/15/17 12:55 DC 09/15/17 13:10 Acetaminophen/ Hydrocodone Bitart ([place] (5/325)) 1 tab ONCE ONCE PO 09/15/17 13:00 09/15/17 13:01 DC 09/15/17 13:09 Procedures/MDM 32-year-old female comes in with headache, consistent with her trigeminal neuralgia. The patient's symptoms were controlled with Toradol as well as p.o. [place] here. Clinical signs for TIA or stroke or not present. Patient's history is not concerning for meningitis, encephalitis, encephalopathy. There is concern the patient has been here in the emergency department several times for headache. I have had a long discussion with her that she is to follow-up with her doctor to get a referral to see a neurologist to manage her trigeminal neuralgia. She is to continue taking carbamazepine. Departure Diagnosis: Primary Impression: Acute headache Condition: JOANN Suero PA-C Sep 15, 2017 13:31
[2017-09-15] MEDS ORDERED: GABA300C16 PO (13:47)
[2017-09-15] MEDS ORDERED: FIORICET PO (13:47)
[2017-09-15] MEDS ORDERED: FLUT9.9S NASAL (13:48)
[2017-09-15] MEDS ORDERED: CETI10CA PO (13:48)
[2017-09-15 14:25] VITALS: PULSE 98
== END 2017-09-15 14:26 | disposition home or self-care (01) ==
LOC: FTE 11:42
DX: G50.0 Trigeminal neuralgia (principal); J44.9 Chronic obstructive pulmonary disease, unspecified; F17.210 Nicotine dependence, cigarettes, uncomplicated
CPT/HCPCS: 96372; J1885; Z7502; Z7610

== ENCOUNTER 2017-11-22 14:36 | Emergency (ER) | END 2017-11-22 16:26 | disposition home or self-care (01) ==

== ENCOUNTER 2017-11-24 21:50 | Emergency (ER) | END 2017-11-25 00:46 | disposition home or self-care (01) ==

== ENCOUNTER 2018-06-29 00:32 | Emergency (ER) | END 2018-06-29 00:51 | disposition left against medical advice (07) ==

== ENCOUNTER 2018-12-10 04:30 | Emergency (ER) | payer OTHER ==
[~2018-12-10] VITALS: Ht 157.5 cm; Wt 76.0 kg
[~2018-12-10 04:30] MED LIST changes: -ALBU8.5H3 INH; +ALBU8.5H8 INH; +BEN25 PO; +CETI10CA PO; -CLIN-73 PO; +CLIN300C10 PO; +FIORICET PO; +FLUT9.9S NASAL; +GABA300C16 PO; +HC.5O30 TOP; +HYDR-4011 PO; -HYDR-906 PO
[2018-12-10 04:40] VITALS: BP 145/64; PULSE 105; RESP 20; Ht 157.5 cm; Wt 76.0 kg
--- NOTE | 2018-12-10 05:24 | ERD ---
ER Documentation Chief Complaint Chief Complaint R rib cage progressively hurting tyrone upon cough,fell off the bed 2 hrs ago HPI 23-year-old female presents with rib cage pain after falling out of her bed. States that she has had rib fractures in the past. Also states that it hurts when she breathes in. States that she does not want any pain medication denies taking any treatments. Denies wheezing, shortness of breath. Denies past medical history. Denies allergies. Denies medications. Denies surgeries. Denies alcohol, tobacco, drug use. Up to date on vaccines. ROS All systems reviewed and are negative except as per history of present illness. Medications Home Meds Active Scripts Ibuprofen* (Motrin*) 600 Mg Tab, 600 MG PO Q6 for pain, #30 TAB Prov:CHRIST EVANS 12/10/18 Hydrocortisone* Topical (Hydrocortisone* Topical) 0.5%- 28.35 Gm Oint, 1 APPLIC TOP BID, #1 TUB Prov:OFE VICENTE PA-C 11/25/17 Diphenhydramine Hcl* (Benadryl*) 25 Mg Cap, 25 MG PO Q6, #30 CAP Prov:OFE VICENTE PA-C 11/25/17 Clindamycin Hcl* (Clindamycin Hcl*) 300 Mg Capsule, 300 MG PO TID for 10 Days, CAP Prov:KERMIT RIVAS PA-C 11/22/17 Sulfamethoxazole/Trimethoprim* (Bactrim Ds* Tablet) 1 Each Tablet, 1 TAB PO BID, #14 TAB Prov:KERMIT RIVAS PA-C 11/22/17 Cetirizine Hcl* (Zyrtec*) 10 Mg Capsule, 10 MG PO DAILY, #30 TAB.CHEW Prov:JOANN LEE PA-C 09/15/17 Fluticasone Propionate (Flonase Allergy Relief) 9.9 Ml [place].susp, 1 SPRAY NASAL BID, #1 BOTTLE TO EACH NOSTRIL Prov:JOANN LEE PA-C 09/15/17 Gabapentin* (Gabapentin*) 300 Mg Capsule, 300 MG PO BID, #60 CAP Prov:JOANN LEE PA-C 09/15/17 Acetamin/Butalbital/Caffeine* (Fioricet*) [id number] Tab, 1 TAB PO Q6H PRN for PAIN, #15 TAB Prov:JOANN LEE PA-C 09/15/17 Albuterol Sulfate* (Albuterol Sulfate* Neb) 0.083%-3 Ml Neb, 2.5 MG NEB Q4 PRN for SHORTNESS OF BREATH, #30 EA Prov:JEANETTE CRAFT 08/20/17 Albuterol Sulfate* (Proair HFA*) 8.5 Gm Hfa.aer.ad, 2 PUFF INH Q4, #1 INHALER Prov:JEANETTE CRAFT 08/20/17 Acetaminophen* (Tylophen*) 500 Mg Capsule, 1 CAP PO Q6H PRN for PAIN AND OR ELEVATED TEMP, #20 CAP Prov:JEANETTE CRAFT 08/20/17 Cephalexin* (Keflex*) 500 Mg Capsule, 500 MG PO QID for 5 Days, CAP Prov:LES WIGGINS PA-C 08/17/17 Sulfamethoxazole/Trimethoprim* (Bactrim Ds* Tablet) 1 Each Tablet, 1 TAB PO BID for 7 Days, TAB Prov:LES WIGGINS PA-C 08/17/17 Diphenhydramine Hcl* (Benadryl*) 50 Mg Cap, 50 MG PO Q6H PRN for ITCHING/RASH, #30 CAP Prov:CATERINA ALFRED NP 07/15/17 Tramadol HCl (Tramadol HCl) 50 Mg Tablet, 50 MG PO Q4 PRN for PAIN, #20 TAB Prov:JUDI ERAZO 07/04/17 Triamcinolone Acetonide* (Kenalog*) 0.1%-15GM Oint, 1 APPLIC TOP BID for 7 Days, #1 EA Prov:LES GAUTHIER MD 06/27/17 Cyclobenzaprine Hcl* (Cyclobenzaprine Hcl*) 5 Mg Tablet, 5 MG PO Q8H PRN for PAIN, #15 TAB Prov:JOANN LEE PA-C 06/09/17 Ibuprofen* (Motrin*) 600 Mg Tab, 600 MG PO Q6, #30 TAB Prov:JOANN LEE PA-C 06/09/17 Hydrocodone/Acetaminophen ([place] 5-325 Tablet) 1 Each Tablet, 1 TAB PO Q6H PRN for PAIN, #7 TAB Prov:JOANN LEE PA-C 06/09/17 Carbamazepine* (Carbamazepine* XR) 200 Mg Tab.er.12h, 200 MG PO Q12, #20 TAB.SA Prov:CATERINA ALFRED NP 05/30/17 Mupirocin* (Bactroban*) 2% -22 Gram Oint...g., 1 APPLIC TOP BID for 14 Days, EA Prov:NATALIE AHUMADA MD 03/25/17 Cephalexin* (Keflex*) 500 Mg Capsule, 500 MG PO QID for 10 Days, CAP Prov:NATALIE AHUMADA MD 03/25/17 Sulfamethoxazole/Trimethoprim* (Bactrim Ds* Tablet) 1 Each Tablet, 1 TAB PO BID, #20 TAB Prov:NATALIE AHUMADA MD 03/25/17 Clindamycin Hcl* (Clindamycin Hcl*) 300 Mg Capsule, 450 MG PO TID for 10 Days, CAP Prov:SIMONA DEWEY PA-C 08/29/16 Albuterol Sulfate* (Proventil* Neb) 0.083% Neb, 2.5 MG NEB Q4 PRN for SHORTNESS OF BREATH, #30 EA Prov:YASMIN THORPE MD 05/02/16 Ibuprofen* (Motrin*) 600 Mg Tab, 600 MG PO Q6H PRN for PAIN AND OR ELEVATED TEMP, #30 Prov:CATERINA ALFRED NP 09/01/15 Guaifenesin-Codeine Phosphate* (Guaifenesin* with Codeine Liq) 120 Ml Liquid, 5 ML PO Q4H PRN for COUGH, #60 ML Prov:CATERINA ALFRED NP 08/06/15 Clindamycin Hcl* (Clindamycin Hcl*) 300 Mg Capsule, 300 MG PO Q8 for 10 Days, CAP Prov:CATERINA ALFRED NP 08/06/15 Ondansetron Hcl* (Zofran* ODT) 4 mg -ODT Tab.disper, 4 MG PO Q8 PRN for NAUSEA AND/OR VOMITING, #30 TAB Prov:CATERINA ALFRED NP 08/06/15 Cephalexin* (Keflex*) 500 Mg Capsule, 500 MG PO QID for 10 Days, CAP Prov:CATERINA ALFRED NP 07/23/15 Ibuprofen* (Ibuprofen*) 600 Mg Tablet, 600 MG PO Q6H PRN for PA, #30 TAB Prov:AUBRIECATERINA NP 07/23/15 Sulfamethoxazole-Trimethoprim* (Bactrim* DS) 800-160 Mg Tab, 1 TAB PO BID for 10 Days, TAB Prov:AUBRIECATERINA NP 07/23/15 Cephalexin* (Keflex*) 500 Mg Capsule, 500 MG PO QID for 7 Days, CAP Prov:JAVIER BACON PA-C 06/04/15 Sulfamethoxazole-Trimethoprim* (Bactrim* DS) 800-160 Mg Tab, 1 TAB PO BID for 7 Days, TAB Prov:JAVIER BACON PA-C 06/04/15 Reported Medications Naproxen* (Aleve*) Unknown Strength Capsule, PO BID, CAP 09/01/15 [None] No Conflict Check 01/27/11 Allergies Allergies: Coded Allergies: meperidine (Verified Allergy, Mild, 05/30/17) vancomycin (Verified Allergy, Mild, 05/30/17) marijuana (Verified Allergy, Unknown, 05/30/17) tramadol (Verified Allergy, Unknown, 07/15/17) PMhx/Soc History of Surgery: Yes (CVP Cath Placement/Removal) Anesthesia Reaction: No Hx Neurological Disorder: Yes (TRIGEMINAL NEURALGIA) Hx Respiratory Disorders: Yes (Asthma,COPD) Hx Cardiac Disorders: Yes (AMI(2006)) Hx Psychiatric Problems: No Hx Miscellaneous Medical Probl: Yes (Leukemia,ChemoTx,Myalgia,R Achilles Tendon Sprain,Chronic Skin Abscesses) Hx Alcohol Use: No Hx Substance Use: No Hx Tobacco Use: Yes Smoking Status: Current every day smoker FmHx Family History: No diabetes, No coronary disease, No other Physical Exam Vitals Vital Signs Date Temp Pulse Resp B/P (MAP) Pulse Ox O2 O2 Flow FiO2 Time Delivery Rate 12/10/18 98.2 105 20 145/64 96 04:40 (91) Physical Exam Const: No acute distress Head: Atraumatic Eyes: Normal Conjunctiva ENT: Normal External Ears, Nose and Mouth. Neck: Full range of motion. No meningismus. Trachea was midline. No JVD. Resp: Clear to auscultation bilaterally. Tenderness to palpation over the right upper anterior rib rib cage. No bony deformities, ecchymosis, edema noted. Cardio: Regular rate and rhythm, no murmurs Abd: Soft, non tender, non distended. Normal bowel sounds Skin: No petechiae or rashes Back: No midline or flank tenderness Ext: No cyanosis, or edema Neur: Awake and alert Psych: Normal Mood and Affect Procedures/MDM DIAGNOSTIC IMAGING REPORT Patient: NOE OSUNA : 1985 Age: 33 Sex: F MR #: [id number] DOS: 12/10/18 0518 Ordering MD: CHRIST EVANS Location: [facility] Room/Bed: PROCEDURE: XR Chest 1 View CLINICAL INDICATION: Chest pain. Right anterior rib trauma. TECHNIQUE: VIEWS: 1 IMAGES: 1 COMPARISON: May 02, 2016. FINDINGS: CARDIAC AND MEDIASTINAL SILHOUETTES: Within normal limits. LUNGS: Appear clear. OSSEOUS STRUCTURES: Unremarkable. IMPRESSION: 1. No acute abnormality is appreciated. RPTAT:[facility] Physician Pau Date Time Electronically viewed and signed by Anton Kunz Physician on 12/10/2018 06:09 GT/ CC: CHRIST EVANS [phone] 23-year-old female presents with rib cage pain after falling out of her bed. States that she has had rib fractures in the past. Also states that it hurts when she breathes in. States that she does not want any pain medication denies taking any treatments. Denies wheezing, shortness of breath. Denies past medical history. Denies allergies. Denies medications. Denies surgeries. Denies alcohol, tobacco, drug use. Up to date on vaccines. Chest x-ray was ordered within normal limits. Based on patient history exam patient most likely has rib contusion versus muscle strain. Patient given Rx for ibuprofen. I have low suspicion for acute coronary syndrome, pulmonary embolism, aortic dissection, AAA, pneumothorax, esophageal rupture, pericarditis, myocarditis, or pneumonia based on EKG, imaging, labs, patient history and exam. Patient discharged with strict ER precautions. Patient advised to follow up with PMD. All questions answered at discharge. Departure Diagnosis: Primary Impression: Rib injury Additional Impression: Rib pain Condition: Stable CHRIST EVANS Dec 10, 2018 05:24
[2018-12-10] MEDS ORDERED: IBUP-1542 PO (06:14)
== END 2018-12-10 06:22 | disposition home or self-care (01) ==
LOC: FTE 04:30
DX: S29.001A Unspecified injury of muscle and tendon of front wall of thorax, initial encounter (principal); J44.9 Chronic obstructive pulmonary disease, unspecified; J45.909 Unspecified asthma, uncomplicated; F17.210 Nicotine dependence, cigarettes, uncomplicated; W06.XXXA Fall from bed, initial encounter; Y92.9 Unspecified place or not applicable
CPT/HCPCS: 71045; Z7502

== ENCOUNTER 2019-05-19 13:01 | Emergency (ER) | payer OTHER ==
[~2019-05-19] VITALS: Ht 160 cm; Wt 73.3 kg
[2019-05-19 13:04] VITALS: BP 137/63; PULSE 69; RESP 18; Ht 160 cm; Wt 73.3 kg
[2019-05-19] MEDS ORDERED: KETOROLAC 30 MG INJ IM STA (13:52)
[2019-05-19] MEDS ORDERED: DEXAMETHASONE 10 MG/ML 1 ML INJ IM ONE (14:00)
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
== END 2019-05-19 15:23 | disposition home or self-care (01) ==
LOC: FTE 13:01
DX: S20.229A Contusion of unspecified back wall of thorax, initial encounter (principal); J44.9 Chronic obstructive pulmonary disease, unspecified; W06.XXXA Fall from bed, initial encounter; Y92.9 Unspecified place or not applicable; Z87.891 Personal history of nicotine dependence
CPT/HCPCS: 72072; 72100; 81025; 96372; J1100; J1885; Z7502